=== PATIENT | male | born 2000 | race Caucasian/White ===

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

== ENCOUNTER 2018-03-28 14:38 | Inpatient (IN) | payer BC ==
[2018-03-28] MEDS ORDERED: SODIUM CHLORIDE 1,000 ML IV STA ×2 (14:40→17:12)
[2018-03-28] MEDS ORDERED: ONDANSETRON 4 MG/2 ML VIAL IVPUSH ONE (14:40)
[2018-03-28] MEDS ORDERED: ACETAMINOPHEN 1000 MG/100 ML VIAL (NON FORMULARY) IVPB ONE ×2 (14:40→20:32)
[2018-03-28] MEDS ORDERED: ACETAMINOPHEN INJECTION 100 ML IVPB ONE ×2 (14:48→20:30)
[2018-03-28] MEDS ORDERED: ONDANSETRON 4 MG/2 ML VIAL ONE (14:48)
[2018-03-28 14:53] LABS: HEMATOCRIT 45.7 % (35.4-49); HEMOGLOBIN 15.3 GM/dl (11.7-16.9); MCH 29.9 pg (25.7-33.7); MCHC 33.4 g/dl (32.0-35.9); MEAN CELL VOLUME 89.6 fl (80-96); MEAN PLT VOLUME 8.2 fl (7.5-11.1); PLATELET COUNT 337 K/MM3 (134-434); RDW 12.2 % (11.9-15.9); WHITE BLOOD COUNT 21.6 K/mm3 (4.0-10.8)
[2018-03-28 15:04] LABS: INR 1.49 (0.82-1.09); PROTHROMBIN TIME (PATIENT) 16.5 SEC (10.2-13.0)
--- NOTE | 2018-03-28 15:05 | PDOC ---
History of Present Illness - General Chief Complaint: Nausea/Vomiting Stated Complaint: abd pain, vomiting Time Seen by Provider: 03/28/18 14:39 - History of Present Illness Initial Comments: 03/28/18 15:01 17 yo M with h/o spontaneous PTX presenting to ED with 1 day of abdominal pain, N+V. Pt states that he started having periumbilical abdominal pain yesterday. Today, the pain began to migrate towards his RLQ. Pt has vomited several times. Denies any diarrhea. Denies F/C. Denies any pain in his scrotum but states the pain does radiate towards his groin. No prior abdominal surgeries. Denies sexual activity. Past History - Past Medical History Allergies/Adverse Reactions: Allergies Allergy/AdvReac Type Severity Reaction Status Date / Time No Known Allergies Allergy Verified 03/28/18 14:47 Home Medications: Ambulatory Orders NK [No Known Home Medication] 11/01/14 Asthma: Yes COPD: No - Immunization History Immunization Up to Date: Yes - Suicide/Smoking/Psychosocial Hx Smoking History: Never smoked Have you smoked in the past 12 months: No Hx Alcohol Use: No Drug/Substance Use Hx: No Substance Use Type: None Review of Systems - Review of Systems Comments:: 03/28/18 15:04 GENERAL/CONSTITUTIONAL: No fever or chills. No weakness. HEAD, EYES, EARS, NOSE AND THROAT: No change in vision. No ear pain or discharge. No sore throat. CARDIOVASCULAR: No chest pain, no shortness of breath, no loss of consciousness RESPIRATORY: No cough, wheezing, or hemoptysis. GASTROINTESTINAL: + RLQ pain, + nausea, + vomiting, no diarrhea or constipation. GENITOURINARY: No dysuria, frequency, or change in urination. MUSCULOSKELETAL: No joint or muscle swelling or pain. No neck or back pain. SKIN: No rash NEUROLOGIC: No vertigo, no change in strength/sensation. ENDOCRINE: No increased thirst. No abnormal weight change. HEMATOLOGIC/LYMPHATIC: No anemia, easy bleeding, or history of blood clots. ALLERGIC/IMMUNOLOGIC: No hives or skin allergy. *Physical Exam - Physical Exam Comments: 03/28/18 15:05 "GENERAL: Awake, alert, and fully oriented, in no acute distress. HEAD: No signs of trauma EYES: PERRLA, EOMI, sclera anicteric, conjunctiva clear ENT: Auricles normal inspection, hearing grossly normal, nares patent, oropharynx clear without exudates. Moist mucosa NECK: Nontender, no stepoffs, Normal ROM, supple, no lymphadenopathy, JVD, or masses LUNGS: Breath sounds equal, clear to auscultation bilaterally. No wheezes, and no crackles HEART: Regular rate and rhythm, normal S1 and S2, no murmurs, rubs or gallops ABDOMEN: + RLQ tenderness, + guarding : No scrotal masses, normal scrotal appearance and lay, no inguinal hernia, + tenderness posterior to R testicle EXTREMITIES: Normal range of motion, no edema. No clubbing or cyanosis. No cords, erythema, or tenderness NEUROLOGICAL: Cranial nerves II through XII intact. 5/5 strength and sensation in all extremities, Normal speech, normal gait, normal cerebellar function SKIN: Warm, Dry, normal turgor, no rashes or lesions noted. ED Treatment Course - LABORATORY CBC & Chemistry Diagram: 03/28/18 14:48 03/28/18 14:48 - RADIOLOGY Radiology Studies Ordered: Category Date Time Status ABDOMEN & PELVIS CT WITH CONTR [CT] Stat CT Scan 03/28/18 14:53 Ordered SCROTUM AND CONTENTS US [US] Stat Ultrasound 03/28/18 14:58 Ordered - Medications Given in the ED: ED Medications Discontinued Medications Generic Name Dose Route Start Last Admin Trade Name Freq PRN Reason Stop Dose Admin Acetaminophen 1,000 mg 03/28/18 14:40 03/28/18 14:54 Ofirmev Injection - IVPB 03/28/18 14:41 1,000 mg ONCE ONE Administration Ondansetron HCl 4 mg 03/28/18 14:40 03/28/18 14:54 Zofran Injection IVPUSH 03/28/18 14:41 4 mg ONCE ONE Administration Medical Decision Making - Medical Decision Making 03/28/18 15:13 17 yo M with RLQ pain, N+V. Suspect acute appendicitis. Will also evaluate for testicular torsion given tenderness of R testicle on exam. - Labs - CTAP - Scrotal US - IVF, tylenol, zofran 03/28/18 16:11 Labs notable for WBC 21 On my read, CT with large appendicolith and + appendicitis Zosyn ordered Dr. Woo consulted, would like pt sent down to [facility] for OR Pt admitted to hospitalist. 03/28/18 17:33 Scrotal US with cysts, no evidence of torsion Pt informed of results and given copy of report *DC/Admit/Observation/Transfer Diagnosis at time of Disposition: Appendicitis - Discharge Dispostion Condition at time of disposition: Stable Decision to Admit order: Yes - Referrals Referrals: Dony Christie MD [Primary Care Provider] - - Patient Instructions - Post Discharge Activity - Attestations Physician Attestion: 03/28/18 16:12 I, Dr. Jerald Christiansen MD, attest that this document has been prepared under my direction and personally reviewed by me in its entirety. I further attest, that it accurately reflects all work, treatment, procedures and medical decision -making performed by me.
[2018-03-28 15:10] LABS: ALBUMIN 4.6 g/dl (3.4-5.0); ALK PHOS 100 U/L (45-117); ANION GAP 13 MMOL/L (8-16); BILIRUBIN,TOTAL 1.1 mg/dl (0.2-1); BLOOD UREA NITROGEN 17 mg/dl (7-18); CALCIUM 9.5 mg/dl (8.5-10); CHLORIDE 98 mmol/L (98-107); CO2 24 mmol/L (21-32); CREATININE 1.1 mg/dl (0.55-1.3); GLUCOSE,RANDOM 138 mg/dl (74-106); POTASSIUM 3.9 mmol/L (3.5-5.1); SGOT/AST 28 U/L (15-37); SGPT/ALT 28 U/L (13-61); SODIUM 135 mmol/L (136-145); TOT PROT 7.7 g/dl (6.4-8.2)
[2018-03-28] MEDS ORDERED: MORPHINE SULFATE 2 MG/ML VIAL IVPUSH ONE (15:45)
[2018-03-28] MEDS ORDERED: PIPERACILLIN/TAZOB 4.5 GM 4.5 GM/100 ML BAG IVPB ONE (15:48)
[2018-03-28] MEDS ORDERED: PIPERACILLIN/TAZOBACTAM 3.375 GM VIAL IVPB ONE (15:48)
[2018-03-28] MEDS ORDERED: PIPERACILLIN/TAZOBACTAM 4.5 GM VIAL IVPB ONE (15:50)
[2018-03-28 15:53] LABS: PLATELET ESTIMATE ADEQUATE
[2018-03-28] MEDS ORDERED: morphine SULFATE 4 MG/ML VIAL ONE ×2 (16:15→17:23)
[2018-03-28 16:32] LABS: URINE APPEARANCE Clear; URINE BILIRUBIN Negative (NEGATIVE); URINE COLOR Yellow; URINE GLUCOSE (UA) Negative (NEGATIVE); URINE KETONE Negative (NEGATIVE); URINE LEUK ESTERASE Negative (NEGATIVE); URINE NITRITE Negative (NEGATIVE); URINE PROTEIN Negative (NEGATIVE); URINE UROBILINOGEN 0.2 (0.2-1.0)
[2018-03-28] MEDS ORDERED: MORPHINE SULFATE 2 MG/ML VIAL IVPUSH PRN ×2 (16:47→22:30)
[2018-03-28 16:54] LABS: LIPASE 95 U/L (73-393)
[2018-03-28] MEDS ORDERED: SODIUM CHLORIDE 1,000 ML IV SCH (17:00)
[2018-03-28] MEDS ORDERED: morphine CARPU-JECT 4 MG/1 ML DISP.SYRIN IVPUSH ONE (17:23)
[2018-03-28] MEDS ORDERED: BUPIVACAINE HCL/PF 0.5% (5MG/ML) 10 ML VIAL ONE (18:54)
--- NOTE | 2018-03-28 19:04 | HP ---
CHIEF COMPLAINT: abdominal pain PCP: HISTORY OF PRESENT ILLNESS: Patient is a 17 year male with a signficnat past medical history of left-sided spontaneous pneumothorax in 2016 and was transferred and treated at [facility] ([facility]). He then developed a second spontaneous pneumothomax 2017 on the left lung and again treated at [facility]. He presents to the ED today for 1 day c/o of abdominal pain with associated nausea vomiting. Patient began to have periumbilical abdominal pain yesterday. Today, the pain began to migrate towards his RLQ. He attempted to eat crackers but was unable to eat anything else. He vomitied several times today. Denies any diarrhea. On exam, patient verbalizes tenderness and has mild distention of his abdomen. ER course was notable for: (1) lactic acid 3.6 (2) zosyn iv (3) wbc 21 Recent Travel: none PAST MEDICAL HISTORY: spontaneous pneumothorax x 2 2015 and 2017 PAST SURGICAL HISTORY: Social History: Smoking: none Alcohol:none Drugs: none Family History: Allergies No Known Allergies Allergy (Verified 03/28/18 14:47) HOME MEDICATIONS: Home Medications Medication Instructions Recorded NK [No Known Home Medication] 11/01/14 REVIEW OF SYSTEMS CONSTITUTIONAL: Absent: fever, chills, diaphoresis, generalized weakness, malaise, loss of appetite, weight change HEENT: Absent: rhinorrhea, nasal congestion, throat pain, throat swelling, difficulty swallowing, mouth swelling, ear pain, eye pain, visual changes CARDIOVASCULAR: Absent: chest pain, syncope, palpitations, irregular heart rate, lightheadedness , peripheral edema RESPIRATORY: Absent: cough, shortness of breath, dyspnea with exertion, orthopnea, wheezing, stridor, hemoptysis GENITOURINARY: Absent: dysuria, frequency, urgency, hesitancy, hematuria, flank pain, genital pain MUSCULOSKELETAL: Absent: myalgia, arthralgia, joint swelling, back pain, neck pain SKIN: Absent: rash, itching, pallor HEMATOLOGIC/IMMUNOLOGIC: Absent: easy bleeding, easy bruising, lymphadenopathy, frequent infections ENDOCRINE: Absent: unexplained weight gain, unexplained weight loss, heat intolerance, cold intolerance NEUROLOGIC: Absent: headache, focal weakness or paresthesias, dizziness, unsteady gait, seizure, mental status changes, bladder or bowel incontinence PSYCHIATRIC: Absent: anxiety, depression, suicidal or homicidal ideation, hallucinations. PHYSICAL EXAMINATION Vital Signs - 24 hr 03/28/18 03/28/18 14:39 17:41 Temperature 98.9 F 98.8 F Pulse Rate 82 101 H Respiratory 18 17 Rate Blood Pressure 136/88 113/64 O2 Sat by Pulse 98 Oximetry (%) GENERAL: Awake, alert, and fully oriented, in no acute distress. flat affect. HEAD: Normal with no signs of trauma. EYES: Pupils equal, round and reactive to light, extraocular movements intact, sclera anicteric, conjunctiva clear. No lid lag. EARS, NOSE, THROAT: Ears normal, nares patent, oropharynx clear without exudates. Moist mucous membranes. NECK: Normal range of motion, supple without lymphadenopathy, JVD, or masses. LUNGS: Breath sounds equal, clear to auscultation bilaterally. HEART: Regular rate and rhythm ABDOMEN: soft tender, mildly distended abdomen with hypoactive bowel sounds MUSCULOSKELETAL: Normal range of motion at all joints. No bony deformities or tenderness. No CVA tenderness. UPPER EXTREMITIES: . No peripheral edema. LOWER EXTREMITIES: No peripheral edema. NEUROLOGICAL: Normal speech. Normal gait. PSYCHIATRIC: Cooperative. Good eye contact. flat affect SKIN: Warm, dry, normal turgor, no rashes or lesions noted, normal capillary refill. Laboratory Results - last 24 hr 03/28/18 03/28/18 03/28/18 14:48 14:48 14:48 WBC 21.6 H RBC 5.10 Hgb 15.3 Hct 45.7 MCV 89.6 MCH 29.9 MCHC 33.4 RDW 12.2 Plt Count 337 D MPV 8.2 Absolute Neuts (auto) 19.0 Neutrophils % No Result Required. Neutrophils % (Manual) 84.0 H Band Neutrophils % 2.0 Lymphocytes % No Result Required. Lymphocytes % (Manual) 8.0 Monocytes % (Manual) 5 Eosinophils % (Manual) 1.0 Platelet Estimate Adequate PT with INR 16.5 H INR 1.49 H Sodium 135 L Potassium 3.9 Chloride 98 Carbon Dioxide 24 Anion Gap 13 BUN 17 Creatinine 1.1 Creat Clearance w eGFR > 60 Random Glucose 138 H Lactic Acid Calcium 9.5 Total Bilirubin 1.1 H AST 28 ALT 28 Alkaline Phosphatase 100 Total Protein 7.7 Albumin 4.6 Lipase 95 Urine Color Urine Appearance Urine pH Ur Specific [place] Urine Protein Urine Glucose (UA) Urine Ketones Urine Blood Urine Nitrite Urine Bilirubin Urine Urobilinogen Ur Leukocyte Esterase Anti-A Titer Blood Type Antibody Screen 03/28/18 03/28/18 03/28/18 14:48 14:48 15:10 WBC RBC Hgb Hct MCV MCH MCHC RDW Plt Count MPV Absolute Neuts (auto) Neutrophils % Neutrophils % (Manual) Band Neutrophils % Lymphocytes % Lymphocytes % (Manual) Monocytes % (Manual) Eosinophils % (Manual) Platelet Estimate PT with INR INR Sodium Potassium Chloride Carbon Dioxide Anion Gap BUN Creatinine Creat Clearance w eGFR Random Glucose Lactic Acid 3.6 H* Calcium Total Bilirubin AST ALT Alkaline Phosphatase Total Protein Albumin Lipase Urine Color Urine Appearance Urine pH Ur Specific [place] Urine Protein Urine Glucose (UA) Urine Ketones Urine Blood Urine Nitrite Urine Bilirubin Urine Urobilinogen Ur Leukocyte Esterase Anti-A Titer Cancelled Blood Type A POSITIVE Cancelled Antibody Screen Negative Cancelled 03/28/18 03/28/18 15:10 16:21 WBC RBC Hgb Hct MCV MCH MCHC RDW Plt Count MPV Absolute Neuts (auto) Neutrophils % Neutrophils % (Manual) Band Neutrophils % Lymphocytes % Lymphocytes % (Manual) Monocytes % (Manual) Eosinophils % (Manual) Platelet Estimate PT with INR INR Sodium Potassium Chloride Carbon Dioxide Anion Gap BUN Creatinine Creat Clearance w eGFR Random Glucose Lactic Acid Calcium Total Bilirubin AST ALT Alkaline Phosphatase Total Protein Albumin Lipase Urine Color Yellow Urine Appearance Clear Urine pH 7.0 Ur Specific [place] 1.010 Urine Protein Negative Urine Glucose (UA) Negative Urine Ketones Negative Urine Blood Negative Urine Nitrite Negative Urine Bilirubin Negative Urine Urobilinogen 0.2 Ur Leukocyte Esterase Negative Anti-A Titer Blood Type A POSITIVE Antibody Screen ASSESSMENT/PLAN: Patient is a 17 year male with a signficnat past medical history of left-sided spontaneous pneumothorax in 2015 and was transferred and treated at [facility] ([facility]). He then developed a second spontaneous pneumothomax on the left lung 2016 and again treated at [facility]. He presents to the ED today for 1 day c/o of abdominal pain with associated nausea vomiting. Patient began to have periumbilical abdominal pain yesterday. Today, the pain began to migrate towards his RLQ. He attempted to eat crackers but was unable to eat anything else. He vomitied several times today. Denies any diarrhea. On exam, patient verbalizes tenderness and has mild distention of his abdomen. GI/ID Severe Sepsis 2/2 of acute appendicitis. Abdominal pain Lactic acidosis with leukocytosis per ct scan: acute appendicitis is identified. no abscess. periappendiceal edema and fluid accumulation is noted. also small amt of free fluid within the rectov esical space Start on zoysn coverage pain management with morphine LR @ 150 cc/hr Surgery to evaluate ID consulted Pulmonary: Spontaneoius pneumothorax 2015 and 2017 Unclear etiology monitor patient closely post op. fen LR @ 150 monitor electrolytes npo prophy: SCDS full code Visit type - Emergency Visit Emergency Visit: Yes Care time: The patient presented to the Emergency Department on the above date and was hospitalized for further evaluation of their emergent condition. - New Patient This patient is new to me today: Yes Date on this admission: 03/28/18 - Critical Care Critical Care patient: No
--- NOTE | 2018-03-28 19:07 | CON.ID ---
Consult Consult Specialty:: infectious diseases Referred by:: armin Reason for Consultation:: appendicitis - History of Present Illness Chief Complaint: rt sided abd pain History of Present Illness: 17 year male with a signficnat past medical history of spontaneous pneumothorax coming to the hospital because of rt sided abd pain which came on suddenly since one day mentions that he had nausea and vomiting. on coming to the hospital patient was worked up and found to have appendicitis surgery team was called and the plan is to take the patient to the operating room currently patient continues to have pain - History Source History Provided By: Patient, Family Member Limitations to Obtaining History: No Limitations - Alcohol/Substance Use Hx Alcohol Use: No - Smoking History Smoking history: Never smoked Have you smoked in the past 12 months: No Home Medications - Allergies Allergies/Adverse Reactions: Allergies Allergy/AdvReac Type Severity Reaction Status Date / Time No Known Allergies Allergy Verified 03/28/18 14:47 - Home Medications Home Medications: Ambulatory Orders NK [No Known Home Medication] 11/01/14 Family Disease History - Family Disease History Family Disease History: Other: Mother (mom had ptx) Review of Systems - Review of Systems Constitutional: reports: No Symptoms Eyes: reports: No Symptoms HENT: reports: No Symptoms Neck: reports: No Symptoms Cardiovascular: reports: No Symptoms Respiratory: reports: No Symptoms Gastrointestinal: reports: Abdominal Pain, Bloating, Nausea, Vomiting Genitourinary: reports: No Symptoms Musculoskeletal: reports: No Symptoms Integumentary: reports: No Symptoms Neurological: reports: No Symptoms Endocrine: reports: No Symptoms Hematology/Lymphatic: reports: No Symptoms Psychiatric: reports: No Symptoms Physical Exam Vital Signs: Vital Signs Temperature 98.8 F 03/28/18 17:41 Pulse Rate 101 H 03/28/18 17:41 Respiratory Rate 17 03/28/18 17:41 Blood Pressure 113/64 03/28/18 17:41 O2 Sat by Pulse Oximetry (%) 98 03/28/18 14:39 Constitutional: Yes: Well Nourished, Calm, Mild Distress Eyes: Yes: Conjunctiva Clear HENT: Yes: Atraumatic, Normocephalic Neck: Yes: Supple, Trachea Midline Cardiovascular: Yes: Regular Rate and Rhythm Respiratory: Yes: Regular, CTA Bilaterally Gastrointestinal: Yes: Tenderness (rt lower quadrant), Other (hypoactive bowel sounds) Musculoskeletal: Yes: WNL Extremities: Yes: WNL Neurological: Yes: Alert, Oriented Psychiatric: Yes: Alert, Oriented Labs: CBC, BMP 03/28/18 14:48 03/28/18 14:48 Imaging - Results Cat Scan: Report Reviewed, Image Reviewed Ultrasound: Report Reviewed, Image Reviewed Assessment/Plan patient coming with acute appendicitis ac appendicitis leukocytosis h/o of spontaneous ptx abd pain plan will start patient on abx for surgery monitor wbc await post op rest as per the team
[2018-03-28] MEDS ORDERED: LACTATED RINGERS SOLUTION 1,000 ML/1,000 ML INFUS.BAG IV SCH (19:15)
[2018-03-28] MEDS ORDERED: MIDAZOLAM HCL 2 MG/2 ML SINGLE DOSE VIAL ONE (20:11)
--- NOTE | 2018-03-28 20:17 | CONSULT ---
- Consultation REQUESTING PROVIDER: Jerald Christiansen MD CONSULT REQUEST: We have been asked to surgically evaluate this patient for appendicitis PCP:Albaro Luciano NP HISTORY OF PRESENT ILLNESS: PMHx: spontaneous pneumothorax; left PSHx: VATS for spontaneous pnemothorax Home Medications Medication Instructions Recorded NK [No Known Home Medication] 11/01/14 Allergies Allergy/AdvReac Type Severity Reaction Status Date / Time No Known Allergies Allergy Verified 03/28/18 14:47 REVIEW OF SYSTEMS: CONSTITUTIONAL: Absent: fever, chills, diaphoresis, generalized weakness, malaise, loss of appetite, weight change CARDIOVASCULAR: Absent: chest pain, syncope, palpitations, irregular heart rate, lightheadedness , peripheral edema RESPIRATORY: Present: cough, shortness of breath, dyspnea with exertion, GASTROINTESTINAL: Absent: abdominal pain, abdominal distension, nausea, vomiting, diarrhea, constipation, melena, hematochezia GENITOURINARY: Absent: dysuria, frequency, urgency, hesitancy, hematuria, flank pain, genital pain MUSCULOSKELETAL: Absent: myalgia, arthralgia, joint swelling, back pain, neck pain SKIN: Absent: rash, itching, pallor HEMATOLOGIC/IMMUNOLOGIC: Absent: easy bleeding, easy bruising, lymphadenopathy NEUROLOGIC: Absent: headache, focal weakness, paresthesias, dizziness, unsteady gait, seizure, mental status changes, bladder or bowel incontinence PSYCHIATRIC: Absent: anxiety, depression, suicidal or homicidal ideation, hallucinations. PHYSICAL EXAM: GENERAL: Awake, alert, and fully oriented, in no acute distress. HEAD: Normal with no signs of trauma. EYES: PERRL, sclera anicteric, conjunctiva clear. NECK: Normal ROM, supple without lymphadenopathy, JVD, or masses. LUNGS: Clear to auscultation bilat anteriorly. No wheezes, and no crackles. No accessory muscle use. HEART: Regular rate and rhythm. No murmurs ABDOMEN: Soft, nontender, not distended, normoactive bowel sounds, no guarding, no rebound, no masses. No organomegaly. MUSCULOSKELETAL: Normal ROM at all joints. No bony deformities or tenderness. No CVA tenderness. UPPER EXTREMITIES: 2+ pulses, warm, well-perfused. No cyanosis. Cap refill <2 seconds. No peripheral edema. LOWER EXTREMITIES: 2+ pulses, warm, well-perfused. No calf tenderness. No peripheral edema. NEUROLOGICAL: Normal speech, gait not observed. PSYCH: Cooperative. Good eye contact. Appropriate mood and affect. SKIN: Warm, dry, normal turgor, no rashes or lesions noted. Vital Signs Temperature 98.8 F 03/28/18 17:41 Pulse Rate 101 H 03/28/18 17:41 Respiratory Rate 17 03/28/18 17:41 Blood Pressure 113/64 03/28/18 17:41 O2 Sat by Pulse Oximetry (%) 98 03/28/18 14:39 Lab Results WBC 21.6 K/mm3 (4.0-10.8) H 03/28/18 14:48 RBC 5.10 M/mm3 (4.00-5.60) 03/28/18 14:48 Hgb 15.3 GM/dl (11.7-16.9) 03/28/18 14:48 Hct 45.7 % (35.4-49) 03/28/18 14:48 MCV 89.6 fl (80-96) 03/28/18 14:48 MCHC 33.4 g/dl (32.0-35.9) 03/28/18 14:48 RDW 12.2 % (11.9-15.9) 03/28/18 14:48 Plt Count 337 K/MM3 (134-434) D 03/28/18 14:48 Sodium 135 mmol/L (136-145) L 03/28/18 14:48 Potassium 3.9 mmol/L (3.5-5.1) 03/28/18 14:48 Chloride 98 mmol/L (98-107) 03/28/18 14:48 Carbon Dioxide 24 mmol/L (21-32) 03/28/18 14:48 Anion Gap 13 MMOL/L (8-16) 03/28/18 14:48 BUN 17 mg/dl (7-18) 03/28/18 14:48 Creatinine 1.1 mg/dl (0.55-1.3) 03/28/18 14:48 Random Glucose 138 mg/dl (74-106) H 03/28/18 14:48 Calcium 9.5 mg/dl (8.5-10) 03/28/18 14:48 Blood Type A POSITIVE 03/28/18 15:10 Antibody Screen Cancelled 03/28/18 15:10 INR 1.49 (0.82-1.09) H 03/28/18 14:48 CT scan a/p reviewed; images and report IMP;acute appendicitis PLAN: Laparoscopic possible open appendectomy; r/b/t/a's d/w the patient and his father and informed consent obtained. Jerald Woo MD FACS
[2018-03-28] MEDS ORDERED: DEXAMETHASONE SOD PHOSPHATE 4 MG/1 ML VIAL ONE ×2 (20:22→21:36)
[2018-03-28] MEDS ORDERED: PROPOFOL 20 ML ONE (20:22)
[2018-03-28] MEDS ORDERED: LIDOCAINE HCL/PF 2% SDV 5ML VIAL ONE (20:22)
[2018-03-28] MEDS ORDERED: ROCURONIUM BROMIDE 50 MG/5 ML VIAL ONE (20:23)
[2018-03-28] MEDS ORDERED: BUPIVACAINE HCL/PF (5 MG/ML) 30 ML VIAL IJ ONE ×3 (20:52→21:38)
[2018-03-28] MEDS ORDERED: NEOSTIGMINE METHYLSULFATE 0.5 MG/ML - 10 ML MDV ONE (21:38)
[2018-03-28] MEDS ORDERED: GLYCOPYRROLATE 0.2 MG/1 ML VIAL ONE (21:38)
--- NOTE | 2018-03-28 22:06 | OP ---
Operative Note - Note: Operative Date: 03/28/18 Pre-Operative Diagnosis: acute appendicitis Operation: lap appendectomy Post-Operative Diagnosis: Other (perforated gangrenous appendicitis) Surgeon: Jerald Woo Anesthesiologist/ROCK LATHER: Crescencio Rosales Anesthesia: General Specimens Removed: appendix Estimated Blood Loss (mls): 5 Drains & Tubes with Location: 10 mm [place] in pelvis
[2018-03-28] MEDS: LACTATED RINGERS SOLUTION 1,000 ML/1,000 ML INFUS.BAG IV SCH (22:30)
[2018-03-29] MEDS ORDERED: PIPERACILLIN/TAZOB 3.375 GM 3.375 GM in DEXTROSE 5%-WATER - 50 ML IVPB SCH (02:00)
[2018-03-29] MEDS ORDERED: PIPERACILLIN/TAZOBACTAM 3.375 GM VIAL IVPB ONE ×3 (02:36→17:26)
[2018-03-29] MEDS ORDERED: DEXTROSE 5%-WATER - 50 ML IVPB ONE ×3 (02:36→17:26)
[2018-03-29] MEDS: PIPERACILLIN/TAZOB 3.375 GM 3.375 GM in DEXTROSE 5%-WATER - 50 ML IVPB SCH ×3 (03:03→17:36)
[2018-03-29 07:06] LABS: BASO % 0.1 % (0-2.0); HEMATOCRIT 36.6 % (35.4-49); HEMOGLOBIN 12.6 GM/dL (11.7-16.9); LYMPH % 3.9 % (8-40); MCH 30.5 pg (25.7-33.7); MCHC 34.4 g/dl (32.0-35.9); MEAN CELL VOLUME 88.5 fl (80-96); MEAN PLT VOLUME 8.2 fl (7.5-11.1); MONO % 6.5 % (3.8-10.2); NEUT % 89.5 % (42.8-82.8); PLATELET COUNT 173 K/MM3 (134-434); RBC 4.14 M/mm3 (4.00-5.60); RDW 13.2 % (11.9-15.9); WHITE BLOOD COUNT 11.6 K/mm3 (4.0-10.0)
[2018-03-29] MEDS: morphine SULFATE 4 MG/ML VIAL IVPUSH PRN ×2 (07:32→20:03)
[2018-03-29 08:09] LABS: ALBUMIN 3.1 g/dl (3.4-5.0); ALK PHOS 87 U/L (45-117); ANION GAP 9 MMOL/L (8-16); BILIRUBIN,TOTAL 1.4 mg/dL (0.2-1); BLOOD UREA NITROGEN 16 mg/dL (7-18); CALCIUM 8.3 mg/dL (8.5-10.1); CHLORIDE 104 mmol/L (98-107); CO2 25 mmol/L (21-32); CREATININE 1.1 mg/dL (0.55-1.3); GLUCOSE,RANDOM 128 mg/dL (74-106); MAGNESIUM 1.9 mg/dL (1.8-2.4); POTASSIUM 4.1 mmol/L (3.5-5.1); SGOT/AST 73 U/L (15-37); SGPT/ALT 145 U/L (13-61); SODIUM 137 mmol/L (136-145); TOT PROT 5.9 g/dl (6.4-8.2)
--- NOTE | 2018-03-29 08:56 | PN ---
Progress Note (short form) - Note Progress Note: Atending Surgeon POD #1 s/p lap appendectomy for perforated gangrenous appendicitis Minimal c/o pain; has voidedW; tolerated some PO this AM VSS AF abdo-soft; tender at port sites; all dressings c/d/i; EVENS seropurulent WBC 11.1 intraop cultures pending IMP: doing well PLAN:OOB/IVABS/clear liquid diet/EVENS drain/EC and DB. Jerald Woo MD FACS
[2018-03-29] MEDS: LACTATED RINGERS SOLUTION 1,000 ML/1,000 ML INFUS.BAG IV SCH ×2 (10:14→17:49)
--- NOTE | 2018-03-29 10:46 | OP ---
DATE OF OPERATION: 03/28/2018 PREOPERATIVE DIAGNOSIS: Acute appendicitis. POSTOPERATIVE DIAGNOSIS: Perforated gangrenous appendicitis. PROCEDURE: Laparoscopic appendectomy. SURGEON: Jerald Woo MD ANESTHESIA: General. OPERATIVE FINDINGS: There was a perforated gangrenous appendicitis. There was no evidence of intraabdominal abscess. There was mild phlegmon. There was purulent fluid in the pelvis and right gutter. The rest of the findings were unremarkable. DESCRIPTION OF PROCEDURE: The patient was placed on the operating table in the supine position, and after the induction of general anesthesia, the patients abdomen was prepped with ChloraPrep and draped in sterile fashion. A time-out was taken , and then, pneumoperitoneum established above the umbilicus using a Veress needle to an intraabdominal pressure of 15 mmHg. Next, a 12-mm suprapubic port was placed, and a left lower quadrant 5-mm port placed, and laparoscopy carried out, and the previously noted findings were observed. The appendix was identified and grasped and traced to the base of the cecum, and the terminal ileum was identified, as well. The phlegmon of omentum over the appendix was bluntly dissected and mobilized away from the appendix. The mesoappendix was then identified and serially divided using the LigaSure device. Once down to the base of the appendix, an Endo AMY stapling device was placed across the base and fired, and the appendix placed in an EndoCatch and brought up to the abdominal wall. There was no evidence of bleeding from the staple line. Next, an aspirate from the peritoneal cavity was sent or culture and sensitivity to Microbiology. After this, copious irrigation was carried out with 3 L of normal saline until the return was clear. The majority of the irrigation fluid was suctioned out. Next the appendix was removed from the suprapubic port site, and the port replaced, and a 10-mm Lonnie-Schneider drain was placed in the right pelvis and brought out through the left lower quadrant 5-mm port site and secured to the skin with 2-0 silk suture. Hemostasis was checked for again and noted to be good, and then, all ports were removed under laparoscopic vision without evidence of bleeding from the port sites, and pneumoperitoneum evacuated. The defect at the suprapubic port site was closed with a single 0 Vicryl figure-of-8 suture. The port sites were infiltrated with 0.5% Marcaine and closed with 4-0 Monocryl in a subcuticular continuous fashion. A Biopatch was placed around the drain site, and then, Steri-Strips and dry sterile dressing were placed over all port sites, and the procedure terminated at this point, and the patient was roused from general anesthesia and transferred to the post-anesthesia care unit in stable condition, awake and alert. ESTIMATED BLOOD LOSS: 10 mL. REPLACEMENTS: Crystalloid. DRAINS: One 10-mm Lonnie-Schneider. SPECIMENS: Appendix to Pathology and culture of intraperitoneal fluid sent to Microbiology. I, Jerald Woo, was physically present in the operating room from the time the patient was placed on the operating table until he was transferred to the post-anesthesia care unit in my accompaniment. MD RADHA Camejo/[id number] MTDD
--- NOTE | 2018-03-29 11:07 | PN ---
Progress Note (short form) - Note Progress Note: Pt s/p lap AP for perforated AP. Doing well, ambulating, tolerating some PO. No anesthetic issues/complications
--- NOTE | 2018-03-29 12:22 | PN ---
Physical Exam: SUBJECTIVE: Patient seen and examined OBJECTIVE: incentive spirometer. ambulation monitor respiratory status pain management POD #1 Vital Signs Period Temp Pulse Resp BP Sys/Guzman Pulse Ox Last 24 Hr 98.2 F-101.0 F 68-101 16-20 94-136/52-88 96-98 GENERAL: Awake, alert, and fully oriented, in no acute distress. HEAD: Normal with no signs of trauma. EYES: Pupils equal, round and reactive to light, extraocular movements intact, sclera anicteric, conjunctiva clear. No lid lag. EARS, NOSE, THROAT: Ears normal, nares patent, oropharynx clear without exudates. Moist mucous membranes. NECK: Normal range of motion, supple without lymphadenopathy, JVD, or masses. LUNGS: Breath sounds equal, clear to auscultation bilaterally. HEART: Regular rate and rhythm ABDOMEN: s/p lap appendectomy. dressing cdi MUSCULOSKELETAL: Normal range of motion at all joints. No bony deformities or tenderness. No CVA tenderness. UPPER EXTREMITIES: . No peripheral edema. LOWER EXTREMITIES: No peripheral edema. NEUROLOGICAL: Normal speech. Normal gait. PSYCHIATRIC: Cooperative. Good eye contact. flat affect SKIN: Warm, dry, normal turgor, no rashes or lesions noted, normal capillary refill. Laboratory Results - last 24 hr 03/28/18 03/28/18 03/28/18 14:48 14:48 14:48 WBC 21.6 H RBC 5.10 Hgb 15.3 Hct 45.7 MCV 89.6 MCH 29.9 MCHC 33.4 RDW 12.2 Plt Count 337 D MPV 8.2 Absolute Neuts (auto) 19.0 Neutrophils % No Result Required. Neutrophils % (Manual) 84.0 H Band Neutrophils % 2.0 Lymphocytes % No Result Required. Lymphocytes % (Manual) 8.0 Monocytes % Monocytes % (Manual) 5 Eosinophils % Eosinophils % (Manual) 1.0 Basophils % Nucleated RBC % Platelet Estimate Adequate PT with INR 16.5 H INR 1.49 H Sodium 135 L Potassium 3.9 Chloride 98 Carbon Dioxide 24 Anion Gap 13 BUN 17 Creatinine 1.1 Creat Clearance w eGFR > 60 Random Glucose 138 H Lactic Acid Calcium 9.5 Magnesium Total Bilirubin 1.1 H AST 28 ALT 28 Alkaline Phosphatase 100 Total Protein 7.7 Albumin 4.6 Lipase 95 Urine Color Urine Appearance Urine pH Ur Specific [place] Urine Protein Urine Glucose (UA) Urine Ketones Urine Blood Urine Nitrite Urine Bilirubin Urine Urobilinogen Ur Leukocyte Esterase Anti-A Titer Blood Type Antibody Screen 03/28/18 03/28/18 03/28/18 14:48 14:48 15:10 WBC RBC Hgb Hct MCV MCH MCHC RDW Plt Count MPV Absolute Neuts (auto) Neutrophils % Neutrophils % (Manual) Band Neutrophils % Lymphocytes % Lymphocytes % (Manual) Monocytes % Monocytes % (Manual) Eosinophils % Eosinophils % (Manual) Basophils % Nucleated RBC % Platelet Estimate PT with INR INR Sodium Potassium Chloride Carbon Dioxide Anion Gap BUN Creatinine Creat Clearance w eGFR Random Glucose Lactic Acid 3.6 H* Calcium Magnesium Total Bilirubin AST ALT Alkaline Phosphatase Total Protein Albumin Lipase Urine Color Urine Appearance Urine pH Ur Specific [place] Urine Protein Urine Glucose (UA) Urine Ketones Urine Blood Urine Nitrite Urine Bilirubin Urine Urobilinogen Ur Leukocyte Esterase Anti-A Titer Cancelled Blood Type A POSITIVE Cancelled Antibody Screen Negative Cancelled 03/28/18 03/28/18 03/29/18 15:10 16:21 06:00 WBC RBC Hgb Hct MCV MCH MCHC RDW Plt Count MPV Absolute Neuts (auto) Neutrophils % Neutrophils % (Manual) Band Neutrophils % Lymphocytes % Lymphocytes % (Manual) Monocytes % Monocytes % (Manual) Eosinophils % Eosinophils % (Manual) Basophils % Nucleated RBC % Platelet Estimate PT with INR INR Sodium 137 Potassium 4.1 Chloride 104 Carbon Dioxide 25 Anion Gap 9 BUN 16 Creatinine 1.1 Creat Clearance w eGFR > 60 Random Glucose 128 H Lactic Acid Calcium 8.3 L Magnesium 1.9 Total Bilirubin 1.4 H AST 73 H ALT 145 H Alkaline Phosphatase 87 Total Protein 5.9 L Albumin 3.1 L Lipase Urine Color Yellow Urine Appearance Clear Urine pH 7.0 Ur Specific [place] 1.010 Urine Protein Negative Urine Glucose (UA) Negative Urine Ketones Negative Urine Blood Negative Urine Nitrite Negative Urine Bilirubin Negative Urine Urobilinogen 0.2 Ur Leukocyte Esterase Negative Anti-A Titer Blood Type A POSITIVE Antibody Screen 03/29/18 06:00 WBC 11.6 H RBC 4.14 Hgb 12.6 Hct 36.6 D MCV 88.5 MCH 30.5 MCHC 34.4 RDW 13.2 Plt Count 173 D MPV 8.2 Absolute Neuts (auto) 10.3 H Neutrophils % 89.5 H D Neutrophils % (Manual) Band Neutrophils % Lymphocytes % 3.9 L D Lymphocytes % (Manual) Monocytes % 6.5 Monocytes % (Manual) Eosinophils % 0.0 D Eosinophils % (Manual) Basophils % 0.1 Nucleated RBC % 0 Platelet Estimate PT with INR INR Sodium Potassium Chloride Carbon Dioxide Anion Gap BUN Creatinine Creat Clearance w eGFR Random Glucose Lactic Acid Calcium Magnesium Total Bilirubin AST ALT Alkaline Phosphatase Total Protein Albumin Lipase Urine Color Urine Appearance Urine pH Ur Specific [place] Urine Protein Urine Glucose (UA) Urine Ketones Urine Blood Urine Nitrite Urine Bilirubin Urine Urobilinogen Ur Leukocyte Esterase Anti-A Titer Blood Type Antibody Screen Active Medications Generic Name Dose Route Start Last Admin Trade Name Freq PRN Reason Stop Dose Admin Lactated Ringer's 1,000 ml in 1,000 mls @ 150 mls/hr 03/28/18 22:30 03/29/18 10:14 Lactated Ringers Solution IV 150 mls/hr ASDIR JESU Administration Piperacillin Sod/Tazobactam 50 mls @ 100 mls/hr 03/29/18 02:00 03/29/18 10:13 Sod 3.375 gm/ Dextrose IVPB 100 mls/hr Q8H-IV JESU Administration Protocol Morphine Sulfate 4 mg 03/28/18 22:03 03/29/18 07:32 Morphine Sulfate IVPUSH 4 mg Q6H PRN Administration PAIN LEVEL 7-10 Morphine Sulfate 1 mg 03/28/18 22:30 Morphine Sulfate IVPUSH Q4H PRN PAIN LEVEL 4-6 ASSESSMENT/PLAN: Patient is a 17 year male with a signficnat past medical history of left-sided spontaneous pneumothorax in 2015 and was transferred and treated at [facility] He then developed a second spontaneous pneumothomax on the left lung 2016 and again treated at [facility]. He presents to the ED on 03/28/18 for 1 day c/o of abdominal pain with associated nausea vomiting. He was found to have acute appendicitis and is s/p POD #1 lap appendectomy for gangrenous appendix. ct scan: acute appendicitis is identified. no abscess. periappendiceal edema and fluid accumulation is noted. also small amt of free fluid within the rectov esical space GI/ID Severe Sepsis 2/2 of acute appendicitis. s/p lap appendectomy POD #1 Lactic acidosis with leukocytosis improving since admission 21 > 11.6 on zoysn coverage, day 2 pain management with morphine on clears incentive spirometer Surgery following ID following : bilateral testicular cysts No torsion Will need to see urology outpatient Pulmonary: Spontaneoius pneumothorax 2016 and 2017 Unclear etiology monitor patient closely post op. encourage incentive spirometer fen clears monitor electrolytes prophy: SCDS full code Visit type - Emergency Visit Emergency Visit: Yes Care time: The patient presented to the Emergency Department on the above date and was hospitalized for further evaluation of their emergent condition. - New Patient This patient is new to me today: No - Critical Care Critical Care patient: No - Discharge Referral Referred to [facility] Med P.C.: No
[2018-03-29] MEDS ORDERED: ACETAMINOPHEN 1000 MG/100 ML VIAL (NON FORMULARY) IVPB ONE (12:30)
[2018-03-29] MEDS ORDERED: ACETAMINOPHEN 1000 MG/100 ML VIAL (NON FORMULARY) IVPB PRN (16:48)
[2018-03-29] MEDS ORDERED: ONDANSETRON 4 MG/2 ML VIAL IVPUSH ONE (20:23)
[2018-03-29] MEDS ORDERED: ONDANSETRON 4 MG/2 ML VIAL ONE (20:27)
--- NOTE | 2018-03-29 21:59 | PN ---
Problem List - Problems (1) Appendicitis Code(s): K37 - UNSPECIFIED APPENDICITIS Qualifiers: Appendicitis type: acute appendicitis Acute appendicitis type: other Qualified Code(s): K35.890 - Other acute appendicitis without perforation or gangrene; K35.89 - Other acute appendicitis (2) Chest wall pain Assessment/Plan: denies chest pain Code(s): R07.89 - OTHER CHEST PAIN (3) Pneumothorax Assessment/Plan: history of spontaneous pneumothorax 2015/2016 s/p VATS at [facility] Code(s): J93.9 - PNEUMOTHORAX, UNSPECIFIED (4) Spontaneous pneumothorax Code(s): J93.83 - OTHER PNEUMOTHORAX (5) Sepsis Assessment/Plan: Sepsis in the setting of acute appendicitis Code(s): A41.9 - SEPSIS, UNSPECIFIED ORGANISM Qualifiers: Sepsis type: sepsis due to unspecified organism
[2018-03-29] MEDS ORDERED: RANITIDINE HCL 150 MG TABLET (FP) PO ONE (23:35)
[2018-03-29] MEDS ORDERED: MAG HYDROX/AL HYDROX/SIMETH 30 ML UNIT-DOSE CUP PO ONE (23:36)
[2018-03-30] MEDS ORDERED: PIPERACILLIN/TAZOBACTAM 3.375 GM VIAL IVPB ONE ×3 (01:55→17:09)
[2018-03-30] MEDS ORDERED: DEXTROSE 5%-WATER - 50 ML IVPB ONE ×2 (01:55→10:07)
[2018-03-30] MEDS: PIPERACILLIN/TAZOB 3.375 GM 3.375 GM in DEXTROSE 5%-WATER - 50 ML IVPB SCH ×3 (01:59→17:20)
[2018-03-30 08:18] LABS: BASO % 0.1 % (0-2.0); EOS % 0.1 % (0-4.5); HEMATOCRIT 35.9 % (35.4-49); HEMOGLOBIN 12.6 GM/dL (11.7-16.9); LYMPH % 6.6 % (8-40); MCH 31.1 pg (25.7-33.7); MCHC 35.1 g/dl (32.0-35.9); MEAN CELL VOLUME 88.6 fl (80-96); MEAN PLT VOLUME 8.3 fl (7.5-11.1); MONO % 7.2 % (3.8-10.2); PLATELET COUNT 189 K/MM3 (134-434); RBC 4.06 M/mm3 (4.00-5.60); RDW 13.2 % (11.9-15.9); WHITE BLOOD COUNT 10.6 K/mm3 (4.0-10.0)
[2018-03-30 08:52] LABS: ANION GAP 9 MMOL/L (8-16); BLOOD UREA NITROGEN 17 mg/dL (7-18); CALCIUM 7.9 mg/dL (8.5-10.1); CHLORIDE 103 mmol/L (98-107); CO2 26 mmol/L (21-32); GLUCOSE,RANDOM 93 mg/dL (74-106); POTASSIUM 3.8 mmol/L (3.5-5.1); SODIUM 138 mmol/L (136-145)
--- NOTE | 2018-03-30 10:36 | PN ---
Progress Note (short form) - Note Progress Note: Attending Surgeon POD#2 Had some nausea and vomiting VSS AF abdo-soft but slightly tender; port site dressings c/d/i; EVENS more serous than purulent WBC continues to tend down Cultures from OR pending IMP: stable post op w/probable localized peritonitis and ileus PLAN: Clear liquids as tolerated; cont IVF/IVABS/EVENS drain; ID f/u/OOB Jerald Woo MD FACS
[2018-03-30] MEDS ORDERED: LORazepam 0.5 MG TABLET PO ONE (11:38)
--- NOTE | 2018-03-30 11:41 | PN ---
Physical Exam: SUBJECTIVE: Patient seen and examined at the bedside. seen by surgery. patient tells he he vomited three times last night. am not feeling well due to nausea, vomiting, pain. OBJECTIVE: remy drain to gravity with straw colored output remy bulb intake and output noted will give one dose of ativan 0.5mg po x 1 now as it may help with all of his symptoms (nausea, pain). he is refusing morphine 2/2 to nausea encouraged ambulation using incentive spirometer POD #2 Vital Signs Period Temp Pulse Resp BP Sys/Guzman Pulse Ox Last 24 Hr 97.9 F-98.8 F 76-94 20-20 105-124/51-62 97 GENERAL: Awake, alert, and fully oriented, HEAD: Normal with no signs of trauma. EYES: Pupils equal, round and reactive to light, extraocular movements intact, sclera anicteric, conjunctiva clear. No lid lag. EARS, NOSE, THROAT: Ears normal, nares patent, oropharynx clear without exudates. Moist mucous membranes. NECK: Normal range of motion, supple without lymphadenopathy, JVD, or masses. LUNGS: Breath sounds equal, clear to auscultation bilaterally. HEART: Regular rate and rhythm ABDOMEN: s/p lap appendectomy. dressing cdi remy drain placed. nausea/abdomen tender MUSCULOSKELETAL: Normal range of motion at all joints. No bony deformities or tenderness. No CVA tenderness. UPPER EXTREMITIES: . No peripheral edema. LOWER EXTREMITIES: No peripheral edema. NEUROLOGICAL: Normal speech. Normal gait. PSYCHIATRIC: Cooperative. Good eye contact. Laboratory Results - last 24 hr 03/30/18 03/30/18 03/30/18 07:30 07:30 09:00 WBC 10.6 H RBC 4.06 Hgb 12.6 Hct 35.9 MCV 88.6 MCH 31.1 MCHC 35.1 RDW 13.2 Plt Count 189 MPV 8.3 Absolute Neuts (auto) 9.1 H Neutrophils % 86.0 H Lymphocytes % 6.6 L D Monocytes % 7.2 Eosinophils % 0.1 D Basophils % 0.1 Nucleated RBC % 0 Sodium 138 Potassium 3.8 Chloride 103 Carbon Dioxide 26 Anion Gap 9 BUN 17 Creatinine 1.0 Creat Clearance w eGFR > 60 Random Glucose 93 Lactic Acid 1.2 Calcium 7.9 L Active Medications Generic Name Dose Route Start Last Admin Trade Name Freq PRN Reason Stop Dose Admin Acetaminophen 1,000 mg 03/29/18 16:48 Ofirmev Injection - IVPB Q6H PRN PAIN LEVEL 7 - 10 Lactated Ringer's 1,000 ml in 1,000 mls @ 150 mls/hr 03/28/18 22:30 03/29/18 17:49 Lactated Ringers Solution IV 150 mls/hr ASDIR JESU Administration Piperacillin Sod/Tazobactam 50 mls @ 100 mls/hr 03/29/18 02:00 03/30/18 10:09 Sod 3.375 gm/ Dextrose IVPB 100 mls/hr Q8H-IV JESU Administration Protocol Lorazepam 0.5 mg 03/30/18 11:38 Ativan - PO 03/30/18 11:39 ONCE ONE Morphine Sulfate 4 mg 03/28/18 22:03 03/29/18 20:03 Morphine Sulfate IVPUSH 4 mg Q6H PRN Administration PAIN LEVEL 7-10 Morphine Sulfate 1 mg 03/28/18 22:30 Morphine Sulfate IVPUSH Q4H PRN PAIN LEVEL 4-6 ASSESSMENT/PLAN: Patient is a 17 year male with a significant past medical history of left- sided spontaneous pneumothorax in 2015 and was transferred and treated at [facility] He then developed a second spontaneous pneumothomax on the left lung 2016 and again treated at [facility]. He presents to the ED on 03/28/18 for 1 day c/o of abdominal pain with associated nausea vomiting. He was found to have acute appendicitis and is s/p POD #2 lap appendectomy for gangrenous appendix. ct scan: acute appendicitis is identified. no abscess. periappendiceal edema and fluid accumulation is noted. also small amt of free fluid within the rectov esical space GI/ID Severe Sepsis 2/2 of acute appendicitis. resolved s/p lap appendectomy POD #2 Lactic acidosis with leukocytosis improving since admission 21 > 10 on zoysn coverage, day 3 having pain, refusing morphine 2/2 to side effects. on clears, but had 3 episodes of n/v incentive spirometer reinforced Surgery following ID following : bilateral testicular cysts No torsion Will need to see urology outpatient Pulmonary: Spontaneoius pneumothorax 2015 and 2017 Unclear etiology monitor patient closely post op. encourage incentive spirometer fen clears monitor electrolytes prophy: SCDS full code Problem List - Problems (1) Appendicitis Code(s): K37 - UNSPECIFIED APPENDICITIS Qualifiers: Appendicitis type: acute appendicitis Acute appendicitis type: other Qualified Code(s): K35.890 - Other acute appendicitis without perforation or gangrene; K35.89 - Other acute appendicitis (2) Chest wall pain Code(s): R07.89 - OTHER CHEST PAIN (3) Pneumothorax Code(s): J93.9 - PNEUMOTHORAX, UNSPECIFIED (4) Spontaneous pneumothorax Code(s): J93.83 - OTHER PNEUMOTHORAX (5) Sepsis Code(s): A41.9 - SEPSIS, UNSPECIFIED ORGANISM Qualifiers: Sepsis type: sepsis due to unspecified organism Qualified Code(s): A41.9 - Sepsis, unspecified organism Visit type - Emergency Visit Emergency Visit: Yes ED Registration Date: 03/28/18 Care time: The patient presented to the Emergency Department on the above date and was hospitalized for further evaluation of their emergent condition. - New Patient This patient is new to me today: No - Critical Care Critical Care patient: No - Discharge Referral Referred to [facility] Med P.C.: No
--- NOTE | 2018-03-30 12:57 | PN ---
Progress Note, Physician History of Present Illness: patient with nausea and vomiting abd soft wbc trending down - Current Medication List Current Medications: Active Medications Acetaminophen (Ofirmev Injection -) 1,000 mg IVPB Q6H PRN PRN Reason: PAIN LEVEL 7 - 10 Last Admin: 03/30/18 11:55 Dose: 1,000 mg Lactated Ringer's (Lactated Ringers Solution) 1,000 ml in 1,000 mls @ 150 mls/ hr IV ASDIR JESU Last Admin: 03/29/18 17:49 Dose: 150 mls/hr Piperacillin Sod/Tazobactam (Sod 3.375 gm/ Dextrose) 50 mls @ 100 mls/hr IVPB Q8H-IV JESU; Protocol Last Admin: 03/30/18 10:09 Dose: 100 mls/hr Morphine Sulfate (Morphine Sulfate) 4 mg IVPUSH Q6H PRN PRN Reason: PAIN LEVEL 7-10 Last Admin: 03/29/18 20:03 Dose: 4 mg Morphine Sulfate (Morphine Sulfate) 1 mg IVPUSH Q4H PRN PRN Reason: PAIN LEVEL 4-6 Ranitidine HCl (Zantac -) 150 mg PO BID JESU - Objective Vital Signs: Vital Signs Temperature 98.8 F 03/30/18 06:00 Pulse Rate 94 H 03/30/18 06:00 Respiratory Rate 20 03/30/18 06:00 Blood Pressure 124/62 03/30/18 06:00 O2 Sat by Pulse Oximetry (%) 97 03/29/18 21:00 Constitutional: Yes: Well Nourished, Calm Cardiovascular: Yes: Regular Rate and Rhythm Respiratory: Yes: Regular, CTA Bilaterally Gastrointestinal: Yes: Soft, Hypoactive Bowel Sounds Musculoskeletal: Yes: WNL Extremities: Yes: WNL Neurological: Yes: Alert, Oriented Psychiatric: Yes: Alert, Oriented Labs: CBC, BMP 03/30/18 07:30 03/30/18 07:30 INR, PTT INR 1.49 (0.82-1.09) H 03/28/18 14:48 Assessment/Plan patient coming with acute appendicitis ac appendicitis leukocytosis h/o of spontaneous ptx abd pain plan continue abx monitor for nausea and vomiting monitor wbc rest as per the team
[2018-03-30] MEDS ORDERED: ONDANSETRON *ODT* 4 MG TABLET SL PRN (16:30)
[2018-03-30] MEDS ORDERED: PROCHLORPERAZINE MALEATE 5 MG TABLET PO PRN (18:41)
[2018-03-30] MEDS ORDERED: oxyCODONE HCL 5 MG TABLET PO PRN (18:43)
[2018-03-30] MEDS ORDERED: ACETAMINOPHEN WITH CODEINE 300MG/30MG TABLET PO PRN (18:48)
[2018-03-30] MEDS ORDERED: traMADol HCL 50 MG TABLET PO PRN (18:53)
[2018-03-30] MEDS: LORazepam 0.5 MG TABLET PO SCH ×2 (19:03→21:53)
[2018-03-30] MEDS ORDERED: ONDANSETRON 4 MG/2 ML VIAL IVPUSH PRN (19:41)
[2018-03-30] MEDS: RANITIDINE HCL 150 MG TABLET (FP) PO SCH (21:53)
[2018-03-30] MEDS: LACTATED RINGERS SOLUTION 1,000 ML/1,000 ML INFUS.BAG IV SCH (22:30)
--- NOTE | 2018-03-30 23:51 | HOSP ---
Physical Examination Vital Signs: Vital Signs Temperature 98.6 F 03/30/18 18:30 Pulse Rate 85 03/30/18 18:30 Respiratory Rate 18 03/30/18 18:30 Blood Pressure 128/64 03/30/18 18:30 O2 Sat by Pulse Oximetry (%) 97 03/30/18 22:00 Labs: CBC, BMP 03/30/18 07:30 03/30/18 07:30 Hospitalist Encounter Assessment: called by Nurse to see patient, father present, pt c/o nausea, vomiting, po changed to IV zofran prn, pt received one dose will change to standing q4hrs zofran.
[2018-03-31] MEDS: ONDANSETRON 4 MG/2 ML VIAL IVPUSH SCH ×3 (00:08→07:41)
[2018-03-31] MEDS ORDERED: DEXTROSE 5%-WATER - 50 ML IVPB ONE ×3 (01:05→18:04)
[2018-03-31] MEDS ORDERED: PIPERACILLIN/TAZOBACTAM 3.375 GM VIAL IVPB ONE ×3 (01:05→18:04)
[2018-03-31] MEDS ORDERED: diphenhydrAMINE HCL 25 MG CAPSULE (FP) PO ONE (01:12)
[2018-03-31] MEDS: PIPERACILLIN/TAZOB 3.375 GM 3.375 GM in DEXTROSE 5%-WATER - 50 ML IVPB SCH ×3 (02:25→18:06)
[2018-03-31] MEDS: LACTATED RINGERS SOLUTION 1,000 ML/1,000 ML INFUS.BAG IV SCH ×3 (05:47→22:30)
[2018-03-31] MEDS: LORazepam 0.5 MG TABLET PO SCH ×2 (05:48→06:33)
[2018-03-31 08:31] LABS: BASO % 0.2 % (0-2.0); EOS % 0.7 % (0-4.5); HEMATOCRIT 37.6 % (35.4-49); HEMOGLOBIN 13.4 GM/dL (11.7-16.9); LYMPH % 7.2 % (8-40); MCH 31.6 pg (25.7-33.7); MCHC 35.5 g/dl (32.0-35.9); MEAN PLT VOLUME 7.9 fl (7.5-11.1); MONO % 8.1 % (3.8-10.2); NEUT % 83.8 % (42.8-82.8); PLATELET COUNT 238 K/MM3 (134-434); RBC 4.23 M/mm3 (4.00-5.60); RDW 13.3 % (11.9-15.9); WHITE BLOOD COUNT 13.8 K/mm3 (4.0-10.0)
[2018-03-31 09:01] LABS: ALBUMIN 2.7 g/dl (3.4-5.0); ALK PHOS 63 U/L (45-117); ANION GAP 10 MMOL/L (8-16); BILIRUBIN,TOTAL 0.6 mg/dL (0.2-1); BLOOD UREA NITROGEN 20 mg/dL (7-18); CALCIUM 7.9 mg/dL (8.5-10.1); CHLORIDE 102 mmol/L (98-107); CO2 26 mmol/L (21-32); CREATININE 1.1 mg/dL (0.55-1.3); GLUCOSE,RANDOM 92 mg/dL (74-106); MAGNESIUM 2.2 mg/dL (1.8-2.4); POTASSIUM 3.7 mmol/L (3.5-5.1); SGOT/AST 30 U/L (15-37); SGPT/ALT 58 U/L (13-61); SODIUM 138 mmol/L (136-145); TOT PROT 5.6 g/dl (6.4-8.2)
[2018-03-31] MEDS: RANITIDINE HCL 150 MG TABLET (FP) PO SCH ×2 (09:06→09:08)
--- NOTE | 2018-03-31 11:58 | PN ---
Progress Note, Physician History of Present Illness: patient c/o of vominting,nausea abd pain no gases - Current Medication List Current Medications: Active Medications Acetaminophen (Ofirmev Injection -) 1,000 mg IVPB Q6H PRN PRN Reason: PAIN LEVEL 7 - 10 Last Admin: 03/30/18 11:55 Dose: 1,000 mg Lactated Ringer's (Lactated Ringers Solution) 1,000 ml in 1,000 mls @ 150 mls/ hr IV ASDIR [facility] Last Admin: 03/31/18 05:47 Dose: 150 mls/hr Piperacillin Sod/Tazobactam (Sod 3.375 gm/ Dextrose) 50 mls @ 100 mls/hr IVPB Q8H-IV JESU; Protocol Last Admin: 03/31/18 09:07 Dose: 100 mls/hr Lorazepam (Ativan -) 0.5 mg PO TID [facility] Last Admin: 03/31/18 06:33 Dose: 0.5 mg Prochlorperazine Maleate (Compazine -) 5 mg PO Q4H PRN PRN Reason: NAUSEA AND/OR VOMITING Ranitidine HCl (Zantac -) 150 mg PO BID [facility] Last Admin: 03/31/18 09:08 Dose: Not Given Tramadol HCl (Ultram -) 50 mg PO Q6H PRN PRN Reason: PAIN LEVEL 7 - 10 - Objective Vital Signs: Vital Signs Temperature 98.3 F 03/31/18 08:46 Pulse Rate 86 03/31/18 08:46 Respiratory Rate 18 03/31/18 08:46 Blood Pressure 140/71 03/31/18 08:46 O2 Sat by Pulse Oximetry (%) 97 03/30/18 22:00 Constitutional: Yes: Calm, Moderate Distress Eyes: Yes: Conjunctiva Clear Cardiovascular: Yes: Regular Rate and Rhythm Respiratory: Yes: Regular, CTA Bilaterally Gastrointestinal: Yes: Soft, Tenderness Musculoskeletal: Yes: WNL Extremities: Yes: WNL Integumentary: Yes: Other (some redness noted on the left side) Wound/Incision: Yes: Other (drainage tube in place) Neurological: Yes: Alert, Oriented Labs: CBC, BMP 03/31/18 08:00 03/31/18 08:00 INR, PTT INR 1.49 (0.82-1.09) H 03/28/18 14:48 Assessment/Plan patient coming with acute appendicitis ac appendicitis leukocytosis h/o of spontaneous ptx abd pain plan continue abx monitor for nausea and vomiting monitor wbc rest as per the team monitor the redness on the side
--- NOTE | 2018-03-31 12:16 | PN ---
Progress Note (short form) - Note Progress Note: Attending Surgeon POD #3 Had several episodes of vomiting VSS AF abdo-soft; port site dressings c/d/i; EVENS serous and decreasing WBC 13.8 IMP: ileus secondary to perforated gangrenous appendicitis w/localozed peritonitis PLAN: NPO; continue present tx. Jerald Woo MD FACS
[2018-03-31] MEDS ORDERED: FAMOTIDINE 20 MG/50 ML IVPB 20 MG/50 ML MG IVPB ONE (12:17)
[2018-03-31] MEDS ORDERED: PROCHLORPERAZINE INJECTION 10 MG/2 ML VIAL IVPB PRN (12:19)
--- NOTE | 2018-03-31 12:20 | PN ---
Physical Exam: SUBJECTIVE: Patient seen and examined at the bedside. mild erythema noted on left flank. warm to touch nausea with vomiting x 5 overnight hiccups and some abdominal pain OBJECTIVE: keep npo encouraged patient to take the morphine 1mg as needed, he can take companzine before to prevent nausea that he gets with morphine monitor drain output IV tylenol for mild pain, morphine for more severe pain. pepcid bid continue LR @ 100 benadryl for sleep prn lorazepam ativan 1mg for nausea of companzine not working Vital Signs Period Temp Pulse Resp BP Sys/Guzman Pulse Ox Last 24 Hr 98.3 F-98.7 F 77-86 18-21 122-140/60-71 97 GENERAL: Awake, alert, and fully oriented, HEAD: Normal with no signs of trauma. EYES: Pupils equal, round and reactive to light, extraocular movements intact, sclera anicteric, conjunctiva clear. No lid lag. EARS, NOSE, THROAT: Ears normal, nares patent, oropharynx clear without exudates. Moist mucous membranes. NECK: Normal range of motion, supple without lymphadenopathy, JVD, or masses. HEART: Regular rate and rhythm ABDOMEN: s/p lap appendectomy. dressing cdi remy drain placed. nausea/abdomen tender to left flank, mild erythema noted on left side. MUSCULOSKELETAL: Normal range of motion at all joints. No bony deformities or tenderness. No CVA tenderness. UPPER EXTREMITIES: . No peripheral edema. LOWER EXTREMITIES: No peripheral edema. NEUROLOGICAL: Normal speech. Normal gait. PSYCHIATRIC: Cooperative. Good eye contact. Laboratory Results - last 24 hr 03/31/18 03/31/18 08:00 08:00 WBC 13.8 H RBC 4.23 Hgb 13.4 Hct 37.6 MCV 89.0 MCH 31.6 MCHC 35.5 RDW 13.3 Plt Count 238 D MPV 7.9 Absolute Neuts (auto) 11.6 H Neutrophils % 83.8 H Lymphocytes % 7.2 L Monocytes % 8.1 Eosinophils % 0.7 D Basophils % 0.2 Nucleated RBC % 0 Sodium 138 Potassium 3.7 Chloride 102 Carbon Dioxide 26 Anion Gap 10 BUN 20 H Creatinine 1.1 Creat Clearance w eGFR > 60 Random Glucose 92 Calcium 7.9 L Magnesium 2.2 Total Bilirubin 0.6 AST 30 ALT 58 Alkaline Phosphatase 63 Total Protein 5.6 L Albumin 2.7 L Active Medications Generic Name Dose Route Start Last Admin Trade Name Freq PRN Reason Stop Dose Admin Acetaminophen 1,000 mg 03/29/18 16:48 03/30/18 11:55 Ofirmev Injection - IVPB 1,000 mg Q6H PRN Administration PAIN LEVEL 7 - 10 Diphenhydramine HCl 12.5 mg 03/31/18 12:17 Benadryl Injection - IVPUSH Q4H PRN FOR ITCHING Lactated Ringer's 1,000 ml in 1,000 mls @ 150 mls/hr 03/28/18 22:30 03/31/18 05:47 Lactated Ringers Solution IV 150 mls/hr ASDIR JESU Administration Piperacillin Sod/Tazobactam 50 mls @ 100 mls/hr 03/29/18 02:00 03/31/18 09:07 Sod 3.375 gm/ Dextrose IVPB 100 mls/hr Q8H-IV JESU Administration Protocol Famotidine/Sodium Chloride 20 mg in 50 mls @ 100 mls/hr 03/31/18 12:17 Pepcid 20 Mg Premixed Ivpb - IVPB 03/31/18 12:46 ONCE ONE Famotidine/Sodium Chloride 20 mg in 50 mls @ 100 mls/hr 03/31/18 22:00 Pepcid 20 Mg Premixed Ivpb - IVPB BID JESU Lorazepam 0.5 mg 03/31/18 12:10 Ativan Injection - IVPUSH Q6H PRN nausea/vomiting Prochlorperazine Edisylate 10 mg 03/31/18 12:19 Compazine Injection - IVPB Q4H PRN NAUSEA AND/OR VOMITING ASSESSMENT/PLAN: Patient is a 17 year male with a significant past medical history of left- sided spontaneous pneumothorax in 2015 and was transferred and treated at [facility] ([facility]). He then developed a second spontaneous pneumothomax on the left lung 2016 and again treated at [facility]. He presents to the ED on 03/28/18 for 1 day c/o of abdominal pain with associated nausea vomiting. He was found to have acute appendicitis and is s/p POD #3 lap appendectomy for gangrenous appendix. ct scan: acute appendicitis is identified. no abscess. periappendiceal edema and fluid accumulation is noted. also small amt of free fluid within the rectov esical space GI/ID Severe Sepsis 2/2 of acute appendicitis. s/p lap appendectomy POD #3 Lactic acidosis with leukocytosis improving since admission 21 > 13.8 (slight bump up today) on zoysn coverage, day 3 pain management with morphine 1mg, can give companzine prior to morphine Keep NPO incentive spirometer Surgery following ID following Nausea/Vomiting Keep NPO and continue ivf hydration companzine, ativan prn for nausea/vomiting Monitor output : bilateral testicular cysts No torsion Will need to see urology outpatient Pulmonary: Spontaneoius pneumothorax 2016 and 2017 Unclear etiology monitor patient closely post op. encourage incentive spirometer fen NPO monitor electrolytes prophy: SCDS, ambulatory patient. full code Problem List - Problems (1) Appendicitis Code(s): K37 - UNSPECIFIED APPENDICITIS Qualifiers: Appendicitis type: acute appendicitis Acute appendicitis type: other Qualified Code(s): K35.890 - Other acute appendicitis without perforation or gangrene; K35.89 - Other acute appendicitis (2) Chest wall pain Code(s): R07.89 - OTHER CHEST PAIN (3) Pneumothorax Code(s): J93.9 - PNEUMOTHORAX, UNSPECIFIED (4) Spontaneous pneumothorax Code(s): J93.83 - OTHER PNEUMOTHORAX (5) Sepsis Code(s): A41.9 - SEPSIS, UNSPECIFIED ORGANISM Qualifiers: Sepsis type: sepsis due to unspecified organism Qualified Code(s): A41.9 - Sepsis, unspecified organism Visit type - Emergency Visit Emergency Visit: Yes ED Registration Date: 03/28/18 Care time: The patient presented to the Emergency Department on the above date and was hospitalized for further evaluation of their emergent condition. - New Patient This patient is new to me today: No - Critical Care Critical Care patient: No - Discharge Referral Referred to [facility] Med P.C.: No
[2018-03-31] MEDS ORDERED: MORPHINE SULFATE 2 MG/ML VIAL IVPUSH PRN (12:40)
[2018-03-31] MEDS: LORazepam 2 MG/ML SDV VIAL IVPUSH PRN ×2 (12:53→22:06)
[2018-03-31] MEDS: ACETAMINOPHEN 1000 MG/100 ML VIAL (NON FORMULARY) IVPB PRN (13:38)
[2018-03-31] MEDS: FAMOTIDINE 20 MG/50 ML IVPB 20 MG/50 ML MG IVPB SCH (22:00)
[2018-04-01] MEDS ORDERED: DEXTROSE 5%-WATER - 50 ML IVPB ONE ×2 (00:36→09:12)
[2018-04-01] MEDS ORDERED: PIPERACILLIN/TAZOBACTAM 3.375 GM VIAL IVPB ONE ×3 (00:36→17:13)
[2018-04-01] MEDS: PIPERACILLIN/TAZOB 3.375 GM 3.375 GM in DEXTROSE 5%-WATER - 50 ML IVPB SCH ×3 (02:00→17:33)
[2018-04-01] MEDS: LACTATED RINGERS SOLUTION 1,000 ML/1,000 ML INFUS.BAG IV SCH ×2 (05:29→22:30)
[2018-04-01 08:56] LABS: BASO % 0.3 % (0-2.0); HEMOGLOBIN 11.8 GM/dL (11.7-16.9); LYMPH % 11.7 % (8-40); MCH 30.7 pg (25.7-33.7); MCHC 34.7 g/dl (32.0-35.9); MEAN CELL VOLUME 88.5 fl (80-96); MEAN PLT VOLUME 7.6 fl (7.5-11.1); MONO % 10.2 % (3.8-10.2); NEUT % 75.8 % (42.8-82.8); PLATELET COUNT 208 K/MM3 (134-434); RBC 3.84 M/mm3 (4.00-5.60); RDW 13.4 % (11.9-15.9); WHITE BLOOD COUNT 8.7 K/mm3 (4.0-10.0)
[2018-04-01 09:14] LABS: ANION GAP 9 MMOL/L (8-16); BLOOD UREA NITROGEN 15 mg/dL (7-18); CALCIUM 7.7 mg/dL (8.5-10.1); CHLORIDE 106 mmol/L (98-107); CO2 23 mmol/L (21-32); CREATININE 0.9 mg/dL (0.55-1.3); GLUCOSE,RANDOM 81 mg/dL (74-106); MAGNESIUM 2.1 mg/dL (1.8-2.4); POTASSIUM 3.9 mmol/L (3.5-5.1); SODIUM 138 mmol/L (136-145)
[2018-04-01] MEDS: ACETAMINOPHEN 1000 MG/100 ML VIAL (NON FORMULARY) IVPB PRN ×2 (09:14→21:33)
[2018-04-01] MEDS: FAMOTIDINE 20 MG/50 ML IVPB 20 MG/50 ML MG IVPB SCH ×2 (09:15→21:26)
--- NOTE | 2018-04-01 10:39 | PN ---
Physical Exam: SUBJECTIVE: Patient seen and examined at the bedside. feels slightly better. slept better. some nausea/no vomiting/mild pain. OBJECTIVE: less tender on all quadrants with deep palpation hypoactive bowel sounds mild erythema on left flank, unchanged from yesterday mild nausea, no vomiting overnight no bm wbc stable and wnl. no fevers no tachycardia remy drain output not recorded overnight. apx 20cc straw color in drain Vital Signs Period Temp Pulse Resp BP Sys/Guzman Pulse Ox Last 24 Hr 98.2 F-99.6 F 84-91 20-22 114-135/65-85 94-95 GENERAL: Awake, alert, and fully oriented, laying in bed comfortably. HEAD: Normal with no signs of trauma. EYES: Pupils equal, round and reactive to light, extraocular movements intact, sclera anicteric, conjunctiva clear. No lid lag. EARS, NOSE, THROAT: Ears normal, nares patent, oropharynx clear without exudates. Moist mucous membranes. NECK: Normal range of motion, supple without lymphadenopathy, JVD, or masses. HEART: Regular rate and rhythm ABDOMEN: s/p lap appendectomy. dressing cdi remy drain placed. some nausea, no vomiting. MUSCULOSKELETAL: Normal range of motion at all joints. No bony deformities or tenderness. No CVA tenderness. UPPER EXTREMITIES: . No peripheral edema. LOWER EXTREMITIES: No peripheral edema. NEUROLOGICAL: Normal speech. Normal gait. PSYCHIATRIC: Cooperative. Good eye contact. Laboratory Results - last 24 hr 04/01/18 04/01/18 07:41 07:41 WBC 8.7 RBC 3.84 L Hgb 11.8 Hct 34.0 L MCV 88.5 MCH 30.7 MCHC 34.7 RDW 13.4 Plt Count 208 MPV 7.6 Absolute Neuts (auto) 6.6 Neutrophils % 75.8 Lymphocytes % 11.7 D Monocytes % 10.2 Eosinophils % 2.0 D Basophils % 0.3 Nucleated RBC % 0 Sodium 138 Potassium 3.9 Chloride 106 Carbon Dioxide 23 Anion Gap 9 BUN 15 Creatinine 0.9 Creat Clearance w eGFR > 60 Random Glucose 81 Calcium 7.7 L Magnesium 2.1 Active Medications Generic Name Dose Route Start Last Admin Trade Name Freq PRN Reason Stop Dose Admin Acetaminophen 1,000 mg 03/31/18 12:41 04/01/18 09:14 Ofirmev Injection - IVPB 1,000 mg Q6H PRN Administration PAIN LEVEL 4 - 6 Diphenhydramine HCl 12.5 mg 03/31/18 12:40 Benadryl Injection - IVPUSH Q4H PRN For Itching or insomnia Lactated Ringer's 1,000 ml in 1,000 mls @ 150 mls/hr 03/28/18 22:30 04/01/18 05:29 Lactated Ringers Solution IV 150 mls/hr ASDIR JESU Administration Piperacillin Sod/Tazobactam 50 mls @ 100 mls/hr 03/29/18 02:00 04/01/18 09:14 Sod 3.375 gm/ Dextrose IVPB 100 mls/hr Q8H-IV JESU Administration Protocol Famotidine/Sodium Chloride 20 mg in 50 mls @ 100 mls/hr 03/31/18 22:00 09:15 Pepcid 20 Mg Premixed Ivpb - IVPB 100 mls/hr BID JESU Administration Lorazepam 0.5 mg 03/31/18 12:10 03/31/18 22:06 Ativan Injection - IVPUSH 0.5 mg Q6H PRN Administration nausea/vomiting Morphine Sulfate 1 mg 03/31/18 12:40 Morphine Sulfate IVPUSH Q4H PRN PAIN LEVEL 7 - 10 Prochlorperazine Edisylate 10 mg 03/31/18 12:19 04/01/18 07:17 Compazine Injection - IVPB 10 mg Q4H PRN Administration NAUSEA AND/OR VOMITING ASSESSMENT/PLAN: Patient is a 17 year male with a significant past medical history of left- sided spontaneous pneumothorax in 2015 and was transferred and treated at [facility] ([facility] He then developed a second spontaneous pneumothomax on the left lung 2016 and again treated at [facility]. He presents to the ED on 03/28/18 for 1 day c/o of abdominal pain with associated nausea vomiting. He was found to have acute appendicitis and is s/p POD #4 lap appendectomy for gangrenous appendix. ct scan: acute appendicitis is identified. no abscess. periappendiceal edema and fluid accumulation is noted. also small amt of free fluid within the rectov esical space GI/ID Severe Sepsis 2/2 of acute appendicitis. s/p lap appendectomy POD #4 Lactic acidosis resolved leukocytosis resolved on zoysn coverage, day 4 pain management with morphine 1mg, can give companzine prior to morphine Keep NPO until seen and evaluated by surgery. advance diet per surgery. incentive spirometer Surgery following ID following Nausea/Vomiting Some nausea/no vomiting overnight Keep NPO and continue ivf hydration companzine, ativan prn for nausea/vomiting Monitor output, apx 20cc in remy drain, straw colored : bilateral testicular cysts No torsion Will need to see urology outpatient ho difficulty with urination. Pulmonary: Spontaneoius pneumothorax 2016 and 2017 Unclear etiology monitor patient closely post op. encourage incentive spirometer fen NPO. advance diet per surgery monitor electrolytes: calcium corrected 8.7, K normal limits. mag normal limits. prophy: SCDS, ambulatory patient. full code Problem List - Problems (1) Appendicitis Code(s): K37 - UNSPECIFIED APPENDICITIS Qualifiers: Appendicitis type: acute appendicitis Acute appendicitis type: other Qualified Code(s): K35.890 - Other acute appendicitis without perforation or gangrene; K35.89 - Other acute appendicitis (2) Chest wall pain Code(s): R07.89 - OTHER CHEST PAIN (3) Pneumothorax Code(s): J93.9 - PNEUMOTHORAX, UNSPECIFIED (4) Spontaneous pneumothorax Code(s): J93.83 - OTHER PNEUMOTHORAX (5) Sepsis Code(s): A41.9 - SEPSIS, UNSPECIFIED ORGANISM Qualifiers: Sepsis type: sepsis due to unspecified organism Qualified Code(s): A41.9 - Sepsis, unspecified organism Visit type - Emergency Visit Emergency Visit: Yes ED Registration Date: 03/28/18 Care time: The patient presented to the Emergency Department on the above date and was hospitalized for further evaluation of their emergent condition. - New Patient This patient is new to me today: No - Critical Care Critical Care patient: No - Discharge Referral Referred to [facility] Med P.C.: No
--- NOTE | 2018-04-01 12:11 | PN ---
Progress Note (short form) - Note Progress Note: 17yo M s/p lap appy. Pt seen and examined at bedside. Pt states that his abd pain is much improved from yesterday, but still feeling nauseous. Pt NPO since yesterday after multiple episodes of vomiting. Pt states his last BM was two days ago and he is not passing flatus. Last Vital Signs Temp Pulse Resp BP Pulse Ox 99.6 F 91 H 22 H 124/65 95 04/01/18 08:57 04/01/18 08:57 04/01/18 08:57 04/01/18 08:57 03/31/18 22:00 CBC, BMP 04/01/18 07:41 04/01/18 07:41 PE: Gen: A&Ox3 Resp: breathing comfortably Abd: soft, nontender, moderately distented. Drain in place with serous drainage. Problem List - Problems (1) Appendicitis Assessment/Plan: Plan -pt most likely developed an Ileus, keep NPO -encourage OOB/ambulate -f/up cultures Code(s): K37 - UNSPECIFIED APPENDICITIS Qualifiers: Appendicitis type: acute appendicitis Acute appendicitis type: other Qualified Code(s): K35.890 - Other acute appendicitis without perforation or gangrene; K35.89 - Other acute appendicitis
--- NOTE | 2018-04-01 14:03 | PN ---
Progress Note, Physician History of Present Illness: patient c/o of nausea but only at night no drain in drainage tube leaking around the side some redness on the left side no gases - Current Medication List Current Medications: Active Medications Acetaminophen (Ofirmev Injection -) 1,000 mg IVPB Q6H PRN PRN Reason: PAIN LEVEL 4 - 6 Last Admin: 04/01/18 09:14 Dose: 1,000 mg Diphenhydramine HCl (Benadryl Injection -) 12.5 mg IVPUSH Q4H PRN PRN Reason: For Itching or insomnia Lactated Ringer's (Lactated Ringers Solution) 1,000 ml in 1,000 mls @ 150 mls/ hr IV ASDIR JESU Last Admin: 04/01/18 05:29 Dose: 150 mls/hr Piperacillin Sod/Tazobactam (Sod 3.375 gm/ Dextrose) 50 mls @ 100 mls/hr IVPB Q8H-IV JESU; Protocol Last Admin: 04/01/18 09:14 Dose: 100 mls/hr Famotidine/Sodium Chloride (Pepcid 20 Mg Premixed Ivpb -) 20 mg in 50 mls @ 100 mls/hr IVPB BID JESU Last Admin: 04/01/18 09:15 Dose: 100 mls/hr Lorazepam (Ativan Injection -) 0.5 mg IVPUSH Q6H PRN PRN Reason: nausea/vomiting Last Admin: 03/31/18 22:06 Dose: 0.5 mg Morphine Sulfate (Morphine Sulfate) 1 mg IVPUSH Q4H PRN PRN Reason: PAIN LEVEL 7 - 10 Prochlorperazine Edisylate (Compazine Injection -) 10 mg IVPB Q4H PRN PRN Reason: NAUSEA AND/OR VOMITING Last Admin: 04/01/18 07:17 Dose: 10 mg - Objective Vital Signs: Vital Signs Temperature 99.6 F 04/01/18 08:57 Pulse Rate 91 H 04/01/18 08:57 Respiratory Rate 22 H 04/01/18 08:57 Blood Pressure 124/65 04/01/18 08:57 O2 Sat by Pulse Oximetry (%) 95 03/31/18 22:00 Constitutional: Yes: No Distress, Calm Cardiovascular: Yes: Regular Rate and Rhythm Respiratory: Yes: Regular, CTA Bilaterally Gastrointestinal: Yes: Normal Bowel Sounds, Soft Musculoskeletal: Yes: WNL Extremities: Yes: WNL Integumentary: Yes: Erythema (left side around the drain) Wound/Incision: Yes: Other Neurological: Yes: Alert, Oriented Psychiatric: Yes: Alert, Oriented Labs: CBC, BMP 04/01/18 07:41 04/01/18 07:41 INR, PTT INR 1.49 (0.82-1.09) H 03/28/18 14:48 Assessment/Plan patient coming with acute appendicitis ac appendicitis leukocytosis h/o of spontaneous ptx abd pain plan continue abx will deescalte once patient is stable wbc has normalized i think the drain is blocked rest as per the team
--- NOTE | 2018-04-01 18:01 | PATH ---
Surgical Pathology Report Patient Name: GAGAN MENDOZA [facility]. Rec. #: [id number] /Age/Gender: 2000 (Age: 17) / M Account: [id number] Location: [address] [place] [address]/[facility] Taken: 03/28/2018 Received: 03/29/2018 Reported: 04/01/2018 Physicians: MD Albaro Dawson F.NOfeliaPOfelia Specimen(s) Received APPENDIX Clinical History Acute appendicitis Final Diagnosis APPENDIX, APPENDECTOMY: SEVERE ACUTE TRANSMURAL APPENDICITIS AND PERIAPPENDICITIS. Electronically Signed Bambi Arias M.D. Gross Description Received in formalin, labeled "appendix," is a 7.5 cm. in length vermiform appendix with a stapled margin of resection and moderate attached fat. The serosa is mccain-boss with inflammation and attached exudate. Sectioning reveals a dilated lumen containing pus and fecal material. The wall of the appendix averages 0.1 cm. in thickness. Lottery Clerk sections are submitted in one cassette. /03/29/2018 [facility]03/29/2018
[2018-04-02] MEDS: LACTATED RINGERS SOLUTION 1,000 ML/1,000 ML INFUS.BAG IV SCH ×2 (01:00→09:17)
[2018-04-02] MEDS ORDERED: PIPERACILLIN/TAZOBACTAM 3.375 GM VIAL IVPB ONE ×3 (02:17→16:56)
[2018-04-02] MEDS ORDERED: DEXTROSE 5%-WATER - 50 ML IVPB ONE ×2 (02:18→09:03)
[2018-04-02] MEDS: PIPERACILLIN/TAZOB 3.375 GM 3.375 GM in DEXTROSE 5%-WATER - 50 ML IVPB SCH ×3 (02:21→17:23)
[2018-04-02 08:31] LABS: BASO % 0.2 % (0-2.0); EOS % 2.5 % (0-4.5); HEMATOCRIT 36.6 % (35.4-49); HEMOGLOBIN 12.6 GM/dL (11.7-16.9); LYMPH % 12.7 % (8-40); MCH 30.4 pg (25.7-33.7); MCHC 34.4 g/dl (32.0-35.9); MEAN CELL VOLUME 88.5 fl (80-96); MEAN PLT VOLUME 7.4 fl (7.5-11.1); MONO % 8.5 % (3.8-10.2); NEUT % 76.1 % (42.8-82.8); PLATELET COUNT 244 K/MM3 (134-434); RBC 4.13 M/mm3 (4.00-5.60); RDW 13.6 % (11.9-15.9); WHITE BLOOD COUNT 10.3 K/mm3 (4.0-10.0)
[2018-04-02 08:56] LABS: ALBUMIN 2.8 g/dl (3.4-5.0); ALK PHOS 59 U/L (45-117); ANION GAP 12 MMOL/L (8-16); BILIRUBIN,TOTAL 0.6 mg/dL (0.2-1); BLOOD UREA NITROGEN 12 mg/dL (7-18); CALCIUM 8.2 mg/dL (8.5-10.1); CHLORIDE 103 mmol/L (98-107); CO2 22 mmol/L (21-32); CREATININE 0.8 mg/dL (0.55-1.3); GLUCOSE,RANDOM 75 mg/dL (74-106); MAGNESIUM 2.3 mg/dL (1.8-2.4); POTASSIUM 3.6 mmol/L (3.5-5.1); SGOT/AST 33 U/L (15-37); SGPT/ALT 57 U/L (13-61); SODIUM 138 mmol/L (136-145); TOT PROT 5.9 g/dl (6.4-8.2)
[2018-04-02] MEDS ORDERED: PT OWN MED DRAWER 7, Y5N ONE (09:01)
--- NOTE | 2018-04-02 09:37 | PN ---
Progress Note (short form) - Note Progress Note: 17yo M s/p lap appy, pt seen and examined at bedside. Pt states that his abd pain is improved. Pt denies n/v, fever, chills. Pt states that he has been drinking water and doing well, eventhough he is NPO. Pt states that he has been ambulating a lot. Last Vital Signs Temp Pulse Resp BP Pulse Ox 99.8 F H 67 20 130/64 98 04/02/18 05:00 04/02/18 05:00 04/02/18 05:00 04/02/18 05:00 04/01/18 20:32 CBC, BMP 04/02/18 08:10 04/02/18 08:10 PE: Gen: A&O x3 Resp: breathing comfortably Abd: soft, nontender, nondistended, LLQ drain in place with serous drainage Ext: no edema Problem List - Problems (1) Appendicitis Assessment/Plan: Plan -will start pt on clears today because he is tolerating water -will pull EVENS drain today -OOB/ ambulate -will advance diet as tolerated. Code(s): K37 - UNSPECIFIED APPENDICITIS Qualifiers: Appendicitis type: acute appendicitis Acute appendicitis type: other Qualified Code(s): K35.890 - Other acute appendicitis without perforation or gangrene; K35.89 - Other acute appendicitis
[2018-04-02 09:56] LABS: ANISOCYTOSIS 0; MACROCYTOSIS 0; PLATELET ESTIMATE NORMAL
[2018-04-02] MEDS: FAMOTIDINE 20 MG/50 ML IVPB 20 MG/50 ML MG IVPB SCH ×2 (10:11→21:47)
--- NOTE | 2018-04-02 13:15 | PN ---
Progress Note, Physician History of Present Illness: stable no other issues drain draining still hypoactive bowel sounds - Current Medication List Current Medications: Active Medications Diphenhydramine HCl (Benadryl Injection -) 12.5 mg IVPUSH Q4H PRN PRN Reason: For Itching or insomnia Lactated Ringer's (Lactated Ringers Solution) 1,000 ml in 1,000 mls @ 150 mls/ hr IV ASDIR JESU Last Admin: 04/02/18 09:17 Dose: 150 mls/hr Piperacillin Sod/Tazobactam (Sod 3.375 gm/ Dextrose) 50 mls @ 100 mls/hr IVPB Q8H-IV JESU; Protocol Last Admin: 04/02/18 09:18 Dose: 100 mls/hr Famotidine/Sodium Chloride (Pepcid 20 Mg Premixed Ivpb -) 20 mg in 50 mls @ 100 mls/hr IVPB BID JESU Last Admin: 04/02/18 10:11 Dose: 100 mls/hr Lorazepam (Ativan Injection -) 0.5 mg IVPUSH Q6H PRN PRN Reason: nausea/vomiting Last Admin: 03/31/18 22:06 Dose: 0.5 mg Morphine Sulfate (Morphine Sulfate) 1 mg IVPUSH Q4H PRN PRN Reason: PAIN LEVEL 7 - 10 Prochlorperazine Edisylate (Compazine Injection -) 10 mg IVPB Q4H PRN PRN Reason: NAUSEA AND/OR VOMITING Last Admin: 04/01/18 07:17 Dose: 10 mg - Objective Vital Signs: Vital Signs Temperature 99.4 F 04/02/18 09:00 Pulse Rate 80 04/02/18 09:00 Respiratory Rate 20 04/02/18 09:00 Blood Pressure 125/71 04/02/18 09:00 O2 Sat by Pulse Oximetry (%) 98 04/01/18 20:32 Constitutional: Yes: Calm, Mild Distress Cardiovascular: Yes: Regular Rate and Rhythm Respiratory: Yes: Regular, CTA Bilaterally Gastrointestinal: Yes: Other (absent bowel sounds) Musculoskeletal: Yes: WNL Extremities: Yes: WNL Wound/Incision: Yes: Clean/Dry Neurological: Yes: Alert, Oriented Psychiatric: Yes: Alert, Oriented Labs: CBC, BMP 04/02/18 08:10 04/02/18 08:10 INR, PTT INR 1.49 (0.82-1.09) H 03/28/18 14:48 Assessment/Plan patient coming with acute appendicitis ac appendicitis leukocytosis h/o of spontaneous ptx abd pain plan continue abx await for gi fn to return nutrition rest as per surgery
--- NOTE | 2018-04-02 17:56 | PN ---
Physical Exam: SUBJECTIVE: Patient seen and examined. Reports LLQ tenderness at drain site, leaking. Feels weak, dizzy when standing OBJECTIVE: Vital Signs Period Temp Pulse Resp BP Sys/Guzman Pulse Ox Last 24 Hr 98.2 F-99.8 F 67-80 19-20 120-131/64-74 98 PE Neuro: alert, awake, cn 2- 12 intact Pulm: CTAB CV: s1 s2 rrr Abd: x3 incision site LLQ tenderness, + leakage Ext: no le edema Laboratory Results - last 24 hr 04/02/18 04/02/18 08:10 08:10 WBC 10.3 H RBC 4.13 Hgb 12.6 Hct 36.6 MCV 88.5 MCH 30.4 MCHC 34.4 RDW 13.6 Plt Count 244 MPV 7.4 L Absolute Neuts (auto) 7.9 Neutrophils % 76.1 Neutrophils % (Manual) 71.0 Band Neutrophils % 0.0 Lymphocytes % 12.7 Lymphocytes % (Manual) 16.0 Monocytes % 8.5 Monocytes % (Manual) 6 Eosinophils % 2.5 Eosinophils % (Manual) 4.0 Basophils % 0.2 Basophils % (Manual) 0.0 Myelocytes % (Man) 2 Promyelocytes % (Man) 0 Blast Cells % (Manual) 0 Nucleated RBC % 0 Metamyelocytes 0 Hypochromia 0 Platelet Estimate Normal Polychromasia 0 Poikilocytosis 0 Anisocytosis 0 Microcytosis 0 Macrocytosis 0 Sodium 138 Potassium 3.6 Chloride 103 Carbon Dioxide 22 Anion Gap 12 BUN 12 Creatinine 0.8 Creat Clearance w eGFR > 60 Random Glucose 75 Calcium 8.2 L Magnesium 2.3 Total Bilirubin 0.6 AST 33 ALT 57 Alkaline Phosphatase 59 Total Protein 5.9 L Albumin 2.8 L Active Medications Generic Name Dose Route Start Last Admin Trade Name Freq PRN Reason Stop Dose Admin Diphenhydramine HCl 12.5 mg 03/31/18 12:40 Benadryl Injection - IVPUSH Q4H PRN For Itching or insomnia Lactated Ringer's 1,000 ml in 1,000 mls @ 150 mls/hr 03/28/18 22:30 04/02/18 09:17 Lactated Ringers Solution IV 150 mls/hr ASDIR JESU Administration Piperacillin Sod/Tazobactam 50 mls @ 100 mls/hr 03/29/18 02:00 04/02/18 17:23 Sod 3.375 gm/ Dextrose IVPB 100 mls/hr Q8H-IV JESU Administration Protocol Famotidine/Sodium Chloride 20 mg in 50 mls @ 100 mls/hr 03/31/18 22:00 10:11 Pepcid 20 Mg Premixed Ivpb - IVPB 100 mls/hr BID JESU Administration Lorazepam 0.5 mg 03/31/18 12:10 03/31/18 22:06 Ativan Injection - IVPUSH 0.5 mg Q6H PRN Administration nausea/vomiting Morphine Sulfate 1 mg 03/31/18 12:40 Morphine Sulfate IVPUSH Q4H PRN PAIN LEVEL 7 - 10 Prochlorperazine Edisylate 10 mg 03/31/18 12:19 04/01/18 07:17 Compazine Injection - IVPB 10 mg Q4H PRN Administration NAUSEA AND/OR VOMITING Assessment: 17 year male with a significant past medical history of left-sided spontaneous pneumothorax in 2015 and was transferred and treated at [facility] He then developed a second spontaneous pneumothomax on the left lung 2016 and again treated at [facility]. He presented to the ED on 03/28/18 for 1 day c/o of abdominal pain with associated nausea vomiting. He was found to have acute appendicitis and is s/p POD #5 lap appendectomy for gangrenous appendix. Plan: 1. Severe Sepsis 2/2 of acute appendicitis. s/p lap appendectomy 03/29 - Drain pulled today - Lactic acidosis resolves - Zoysn coverage, day 5 - Culture pending - Pain management with morphine 1mg, can give compazine prior to morphine - Surgery, ID following 2. Abdominal pain - Abd Xray shows small bowel obstruction - NPO - NGT if needed 3. Nausea/Vomiting - Change IVF to NS - Compazine, ativan prn for nausea/vomiting - Pepcid is only medication that works per pt 4. Bilateral testicular cysts - No torsion - Will need to see urology outpatient Visit type - Emergency Visit Emergency Visit: Yes ED Registration Date: 03/28/18 Care time: The patient presented to the Emergency Department on the above date and was hospitalized for further evaluation of their emergent condition. - New Patient This patient is new to me today: Yes Date on this admission: 04/02/18 - Critical Care Critical Care patient: No
[2018-04-02] MEDS ORDERED: ACETAMINOPHEN 1000 MG/100 ML VIAL (NON FORMULARY) IVPB ONE (20:50)
[2018-04-03] MEDS ORDERED: PIPERACILLIN/TAZOBACTAM 3.375 GM VIAL IVPB ONE ×3 (01:34→17:59)
[2018-04-03] MEDS ORDERED: DEXTROSE 5%-WATER - 50 ML IVPB ONE ×3 (01:34→17:59)
[2018-04-03] MEDS: SODIUM CHLORIDE 1,000 ML IV SCH ×2 (01:43→19:02)
[2018-04-03] MEDS: PIPERACILLIN/TAZOB 3.375 GM 3.375 GM in DEXTROSE 5%-WATER - 50 ML IVPB SCH ×3 (01:44→18:10)
--- NOTE | 2018-04-03 08:50 | PN ---
Progress Note (short form) - Note Progress Note: POD 6, s/p lap appendectomy Pt seen and examined. States he is feeling unchanged this morning. Continues to have abdominal swelling, has discomfort in his LLQ where EVENS drain was. Is NPO, but has juice bedside brought by mom that he has been drinking. No flatus. Denies cp/sob, n/v/d, calf pain or edema. Vital Signs Temp 98.9 F 04/03/18 06:08 Pulse 64 04/03/18 06:08 Resp 20 04/03/18 06:08 BP 112/57 L 04/03/18 06:08 Pulse Ox 98 04/02/18 21:00 Intake & Output 04/02/18 04/02/18 04/03/18 11:59 23:59 11:59 Intake Total 1725 0 1200 Output Total 5 10 Balance 1720 -10 1200 Intake: IV 1500 1150 LACTATED RINGERS SOLUTION 1500 1,000 ml In 1,000 ml @ 150 mls/hr IV ASDIR JESU Rx#:[id number] Normal Saline - 1,000 ml 1150 @ 100 mls/hr IV ASDIR JESU Rx#:[id number] IVPB 50 50 Oral 175 0 Output: Drainage 5 10 Left Lower Abdomen 5 10 Other: Voiding Method Toilet Toilet Bowel Movement No No CBC, BMP 04/02/18 08:10 04/02/18 08:10 Gen: awake, alert, nad. Resp: cta b/l anteriorly CV: rrr, s1s2 Abdo: Distended, soft, ttp LLQ. Hypoactive bowel sounds. Dressing c/d/i. A/P: 17 y/o M w/ PMHx spontaneous pneumothorax admitted 03/28 with abdominal pain , found to have acute appendicitis, now s/p laparoscopic appendectomy. Afebrile, VSS. Labs pending. No flatus, no BM. -Remain NPO -OOB/ambulate -Full labs -Repeat abdo xray in AM -Will recheck pt later this afternoon pt seen and examined with attending Dr Woo
[2018-04-03] MEDS: FAMOTIDINE 20 MG/50 ML IVPB 20 MG/50 ML MG IVPB SCH ×2 (09:33→22:29)
--- NOTE | 2018-04-03 13:35 | PN ---
Progress Note, Physician History of Present Illness: still with no gi function - Current Medication List Current Medications: Active Medications Diphenhydramine HCl (Benadryl Injection -) 12.5 mg IVPUSH Q4H PRN PRN Reason: For Itching or insomnia Piperacillin Sod/Tazobactam (Sod 3.375 gm/ Dextrose) 50 mls @ 100 mls/hr IVPB Q8H-IV JESU; Protocol Last Admin: 04/03/18 09:33 Dose: 100 mls/hr Famotidine/Sodium Chloride (Pepcid 20 Mg Premixed Ivpb -) 20 mg in 50 mls @ 100 mls/hr IVPB BID JESU Last Admin: 04/03/18 09:33 Dose: 100 mls/hr Sodium Chloride (Normal Saline -) 1,000 mls @ 100 mls/hr IV ASDIR JESU Last Admin: 04/03/18 01:43 Dose: 100 mls/hr Morphine Sulfate (Morphine Sulfate) 1 mg IVPUSH Q4H PRN PRN Reason: PAIN LEVEL 7 - 10 Prochlorperazine Edisylate (Compazine Injection -) 10 mg IVPB Q4H PRN PRN Reason: NAUSEA AND/OR VOMITING Last Admin: 04/01/18 07:17 Dose: 10 mg - Objective Vital Signs: Vital Signs Temperature 99.0 F 04/03/18 09:09 Pulse Rate 76 04/03/18 09:09 Respiratory Rate 20 04/03/18 09:09 Blood Pressure 128/70 04/03/18 09:09 O2 Sat by Pulse Oximetry (%) 98 04/02/18 21:00 Constitutional: Yes: Calm Cardiovascular: Yes: Regular Rate and Rhythm Respiratory: Yes: Regular, CTA Bilaterally Gastrointestinal: Yes: Other (absent bowel sounds) Musculoskeletal: Yes: WNL Extremities: Yes: WNL Neurological: Yes: Alert, Oriented Psychiatric: Yes: Alert, Oriented Labs: CBC, BMP 04/02/18 08:10 04/02/18 08:10 INR, PTT INR 1.49 (0.82-1.09) H 03/28/18 14:48 Assessment/Plan patient coming with acute appendicitis ac appendicitis leukocytosis h/o of spontaneous ptx abd pain plan continue abx await for gi fn to return nutrition rest as per surgery
[2018-04-03] MEDS ORDERED: KETOROLAC TROMETHAMINE 30 MG/1 ML VIAL IVPUSH PRN (14:43)
[2018-04-03] MEDS ORDERED: ACETAMINOPHEN 1000 MG/100 ML VIAL (NON FORMULARY) IVPB PRN (14:43)
--- NOTE | 2018-04-03 15:13 | PN ---
Progress Note (short form) - Note Progress Note: Subjective: The patient was seen and examined at the bedside, he has asked that his mother and grandfather not be included in any medical discussions regarding his care. He denies passing gas but states he is feeling the urge to. Abd x-ray today with distended loops of small bowel with multiple fluid level. Small amount of air seen in the colon. NGT placed by surgery todays Current Medications Generic Name Dose Route Start Last Admin Trade Name Freq PRN Reason Stop Dose Admin Acetaminophen 1,000 mg 04/03/18 14:43 Ofirmev Injection - IVPB 04/04/18 08:46 Q6H PRN PAIN LEVEL 4 - 6 Diphenhydramine HCl 12.5 mg 03/31/18 12:40 Benadryl Injection - IVPUSH Q4H PRN For Itching or insomnia Heparin Sodium (Porcine) 5,000 unit 04/03/18 22:00 Heparin - SQ BID JESU Piperacillin Sod/Tazobactam 50 mls @ 100 mls/hr 03/29/18 02:00 04/03/18 09:33 Sod 3.375 gm/ Dextrose IVPB 100 mls/hr Q8H-IV JESU Administration Protocol Famotidine/Sodium Chloride 20 mg in 50 mls @ 100 mls/hr 03/31/18 22:00 09:33 Pepcid 20 Mg Premixed Ivpb - IVPB 100 mls/hr BID JESU Administration Sodium Chloride 1,000 mls @ 100 mls/hr 04/02/18 18:15 04/03/18 01:43 Normal Saline - IV 100 mls/hr ASDIR JESU Administration Ketorolac Tromethamine 30 mg 04/03/18 14:43 04/03/18 14:58 Toradol Injection - IVPUSH 04/08/18 14:42 30 mg Q8H PRN Administration PAIN LEVEL 1-5 Morphine Sulfate 1 mg 03/31/18 12:40 Morphine Sulfate IVPUSH Q4H PRN PAIN LEVEL 7 - 10 Prochlorperazine Edisylate 10 mg 03/31/18 12:19 04/01/18 07:17 Compazine Injection - IVPB 10 mg Q4H PRN Administration NAUSEA AND/OR VOMITING Objective: Vital Signs Period Temp Pulse Resp BP Sys/Guzman Pulse Ox Last 24 Hr 98.5 F-99.0 F 64-76 16-20 112-128/57-70 98 Physical Exam: General: NAD, A&Ox3 Abd: Soft, lap sites c/d/i. Absent bowel sounds CBCD WBC 10.3 K/mm3 (4.0-10.0) H 04/02/18 08:10 RBC 4.13 M/mm3 (4.00-5.60) 04/02/18 08:10 Hgb 12.6 GM/dL (11.7-16.9) 04/02/18 08:10 Hct 36.6 % (35.4-49) 04/02/18 08:10 MCV 88.5 fl (80-96) 04/02/18 08:10 MCHC 34.4 g/dl (32.0-35.9) 04/02/18 08:10 RDW 13.6 % (11.9-15.9) 04/02/18 08:10 Plt Count 244 K/MM3 (134-434) 04/02/18 08:10 MPV 7.4 fl (7.5-11.1) L 04/02/18 08:10 CMP Sodium 138 mmol/L (136-145) 04/02/18 08:10 Potassium 3.6 mmol/L (3.5-5.1) 04/02/18 08:10 Chloride 103 mmol/L (98-107) 04/02/18 08:10 Carbon Dioxide 22 mmol/L (21-32) 04/02/18 08:10 Anion Gap 12 MMOL/L (8-16) 04/02/18 08:10 BUN 12 mg/dL (7-18) 04/02/18 08:10 Creatinine 0.8 mg/dL (0.55-1.3) 04/02/18 08:10 Creat Clearance w eGFR > 60 (>60) 04/02/18 08:10 Random Glucose 75 mg/dL (74-106) 04/02/18 08:10 Calcium 8.2 mg/dL (8.5-10.1) L 04/02/18 08:10 Total Bilirubin 0.6 mg/dL (0.2-1) 04/02/18 08:10 AST 33 U/L (15-37) 04/02/18 08:10 ALT 57 U/L (13-61) 04/02/18 08:10 Alkaline Phosphatase 59 U/L (45-117) 04/02/18 08:10 Total Protein 5.9 g/dl (6.4-8.2) L 04/02/18 08:10 Albumin 2.8 g/dl (3.4-5.0) L 04/02/18 08:10 Microbiology 03/28/18 21:00 Peritoneal Fluid Gram Stain - Final 03/28/18 21:00 Peritoneal Fluid Body Fluid Culture - Final Streptococcus Milleri Group Diphtheroid/Corynebacterium 03/28/18 21:00 Peritoneal Fluid Anaerobic Culture - Preliminary Pending Organism 03/28/18 09:50 Blood - Peripheral Venous Blood Culture - Final NO GROWTH AFTER 5 DAYS INCUBATION 03/28/18 08:40 Blood - Peripheral Venous Blood Culture - Final NO GROWTH AFTER 5 DAYS INCUBATION Assessment: This is a 17 year old male with PMHx of left-sided spontaneous pneumothorax in 2015 and was transferred and treated at [facility] ([facility] He then developed a second spontaneous pneumothomax on the left lung 2016 and again treated at [facility]. He presented to the ED on 03/28/18 for 1 day c/o of abdominal pain with associated nausea vomiting. He was found to have acute appendicitis and is s/p POD #6 lap appendectomy for gangrenous appendix. Plan: 1. Severe Sepsis 2/2 of acute appendicitis. s/p lap appendectomy 03/28 - Continue Zosyn, day 6 - Lactic acidosis resolves - Surgery, ID following 2. Post-op SBO - Abd Xray 04/02 shows small bowel obstruction - Abd X-ray today with distended loops of small bowel with multiple air fluid levels - NGT placed by surgery today. Monitor output closely - NPO 3. Nausea/Vomiting - Resolved 4. Bilateral testicular cysts - No torsion - Will need to see urology outpatient Visit type - Emergency Visit Emergency Visit: Yes ED Registration Date: 03/28/18 Care time: The patient presented to the Emergency Department on the above date and was hospitalized for further evaluation of their emergent condition. - New Patient This patient is new to me today: Yes Date on this admission: 04/03/18 - Critical Care Critical Care patient: No
[2018-04-03 15:29] LABS: BASO % 0.3 % (0-2.0); EOS % 2.3 % (0-4.5); HEMATOCRIT 38.3 % (35.4-49); HEMOGLOBIN 13.2 GM/dL (11.7-16.9); LYMPH % 10.6 % (8-40); MCH 30.8 pg (25.7-33.7); MCHC 34.4 g/dl (32.0-35.9); MEAN CELL VOLUME 89.4 fl (80-96); MEAN PLT VOLUME 7.4 fl (7.5-11.1); MONO % 8.2 % (3.8-10.2); NEUT % 78.6 % (42.8-82.8); PLATELET COUNT 290 K/MM3 (134-434); RBC 4.28 M/mm3 (4.00-5.60); RDW 13.5 % (11.9-15.9); WHITE BLOOD COUNT 11.6 K/mm3 (4.0-10.0)
[2018-04-03] MEDS ORDERED: LORazepam 2 MG/ML SDV VIAL IVPUSH PRN (15:49)
--- NOTE | 2018-04-03 15:53 | PROC ---
Procedure Note Procedure: ngt inserted and advanced to 65cm. Bilious return and air returned, it was placed to suction. Pt tolerated the procedure well. Air auscultated over the stomach when it was flushed.
[2018-04-03 16:02] LABS: ANION GAP 11 MMOL/L (8-16); BLOOD UREA NITROGEN 10 mg/dL (7-18); CALCIUM 8.6 mg/dL (8.5-10.1); CHLORIDE 105 mmol/L (98-107); CO2 25 mmol/L (21-32); CREATININE 0.9 mg/dL (0.55-1.3); GLUCOSE,RANDOM 82 mg/dL (74-106); POTASSIUM 3.7 mmol/L (3.5-5.1); SODIUM 141 mmol/L (136-145)
[2018-04-03 16:41] LABS: PLATELET ESTIMATE ADEQUATE
[2018-04-03] MEDS: HEPARIN NA (PORCINE) 5,000 UNITS/ML 1ML VIAL SQ SCH (22:29)
[2018-04-03] MEDS ORDERED: BENZOCAINE/MENTH/CETYLPYRD CL 1 EACH LOZENGE MM PRN (23:28)
[2018-04-04] MEDS ORDERED: PIPERACILLIN/TAZOBACTAM 3.375 GM VIAL IVPB ONE ×3 (01:21→17:49)
[2018-04-04] MEDS ORDERED: DEXTROSE 5%-WATER - 50 ML IVPB ONE ×3 (01:22→17:49)
[2018-04-04] MEDS: PIPERACILLIN/TAZOB 3.375 GM 3.375 GM in DEXTROSE 5%-WATER - 50 ML IVPB SCH ×3 (02:21→17:55)
[2018-04-04 08:20] LABS: BASO % 0.4 % (0-2.0); EOS % 3.1 % (0-4.5); HEMOGLOBIN 11.8 GM/dL (11.7-16.9); LYMPH % 18.4 % (8-40); MCH 30.1 pg (25.7-33.7); MCHC 33.6 g/dl (32.0-35.9); MEAN CELL VOLUME 89.6 fl (80-96); MEAN PLT VOLUME 7.4 fl (7.5-11.1); MONO % 8.2 % (3.8-10.2); NEUT % 69.9 % (42.8-82.8); PLATELET COUNT 260 K/MM3 (134-434); RBC 3.91 M/mm3 (4.00-5.60); RDW 13.4 % (11.9-15.9); WHITE BLOOD COUNT 7.9 K/mm3 (4.0-10.0)
[2018-04-04 08:29] LABS: ANION GAP 9 MMOL/L (8-16); BLOOD UREA NITROGEN 11 mg/dL (7-18); CHLORIDE 105 mmol/L (98-107); CO2 25 mmol/L (21-32); GLUCOSE,RANDOM 64 mg/dL (74-106); SODIUM 138 mmol/L (136-145)
[2018-04-04 09:46] LABS: URINE APPEARANCE CLEAR; URINE BILIRUBIN NEGATIVE (<2.0 mg/dL); URINE COLOR YELLOW; URINE GLUCOSE (UA) NEGATIVE (NEGATIVE); URINE KETONE 2+ (NEGATIVE); URINE LEUK ESTERASE NEGATIVE (NEGATIVE); URINE NITRITE NEGATIVE (NEGATIVE); URINE PROTEIN NEGATIVE (NEGATIVE); URINE UROBILINOGEN NEGATIVE mg/dL (0.2-1.0)
--- NOTE | 2018-04-04 10:10 | PN ---
Progress Note (short form) - Note Progress Note: 17yo M s/p lap appy, now with Ileus. Pt seen and examined at bedside. Pt had NG tube placed yesterday with only about 200cc output since then. Pt denies n/v , fever, chills. Pt still not passing flatus or BM. Pt denies abd pain. Last Vital Signs Temp Pulse Resp BP Pulse Ox 98.8 F 74 17 127/67 97 04/04/18 06:00 04/04/18 06:00 04/03/18 21:00 04/04/18 06:00 04/03/18 21:00 CBC, BMP 04/04/18 07:00 04/04/18 07:00 PE: Gen: A&O x3 Resp: breathing comfortably Abd: soft, mild distension, nontender, incisions are clean with no erythema or discharge NGT in place with bilious drainage in canister Problem List - Problems (1) Appendicitis Assessment/Plan: Plan -cont NPO, IVF, NGT -f/up abd xray -OOB/ambulate -pain control Code(s): K37 - UNSPECIFIED APPENDICITIS Qualifiers: Appendicitis type: acute appendicitis Acute appendicitis type: other Qualified Code(s): K35.890 - Other acute appendicitis without perforation or gangrene; K35.89 - Other acute appendicitis
[2018-04-04] MEDS: HEPARIN NA (PORCINE) 5,000 UNITS/ML 1ML VIAL SQ SCH (10:43)
[2018-04-04 11:15] LABS: ACANTHOCYTES 0; ANISOCYTOSIS 0; HELMET CELLS 0; HOWELL-JOLLY BODIES 0; MACROCYTOSIS 0; OVALOCYTE 0; PLATELET ESTIMATE NORMAL; ROULEAU 0; SICKELED CELLS 0; TARGET CELLS 0; TEAR DROP CELLS 0; TOXIC GRANULATION 0
[2018-04-04] MEDS: FAMOTIDINE 20 MG/50 ML IVPB 20 MG/50 ML MG IVPB SCH ×2 (11:34→22:09)
--- NOTE | 2018-04-04 12:33 | PN ---
Progress Note, Physician History of Present Illness: repeat xray noted ng tube in place dilated bowel loops - Current Medication List Current Medications: Active Medications Benzocaine/Menthol (Cepacol Lozenge -) 1 each MM PRN PRN PRN Reason: SORE THROAT Last Admin: 04/03/18 23:43 Dose: 1 each Diphenhydramine HCl (Benadryl Injection -) 12.5 mg IVPUSH Q4H PRN PRN Reason: For Itching or insomnia Last Admin: 04/03/18 23:46 Dose: 12.5 mg Heparin Sodium (Porcine) (Heparin -) 5,000 unit SQ BID JESU Last Admin: 04/04/18 10:43 Dose: 5,000 unit Piperacillin Sod/Tazobactam (Sod 3.375 gm/ Dextrose) 50 mls @ 100 mls/hr IVPB Q8H-IV JESU; Protocol Last Admin: 04/04/18 12:01 Dose: 100 mls/hr Famotidine/Sodium Chloride (Pepcid 20 Mg Premixed Ivpb -) 20 mg in 50 mls @ 100 mls/hr IVPB BID JESU Last Admin: 04/04/18 11:34 Dose: 100 mls/hr Sodium Chloride (Normal Saline -) 1,000 mls @ 100 mls/hr IV ASDIR JESU Last Admin: 04/03/18 19:02 Dose: 100 mls/hr Ketorolac Tromethamine (Toradol Injection -) 30 mg IVPUSH Q8H PRN PRN Reason: PAIN LEVEL 1-5 Stop: 04/08/18 14:42 Last Admin: 04/03/18 14:58 Dose: 30 mg Lorazepam (Ativan Injection -) 0.5 mg IVPUSH Q6H PRN PRN Reason: ANXIETY Last Admin: 04/03/18 15:52 Dose: 0.5 mg Morphine Sulfate (Morphine Sulfate) 1 mg IVPUSH Q4H PRN PRN Reason: PAIN LEVEL 7 - 10 Last Admin: 04/03/18 23:43 Dose: 1 mg Prochlorperazine Edisylate (Compazine Injection -) 10 mg IVPB Q4H PRN PRN Reason: NAUSEA AND/OR VOMITING Last Admin: 04/01/18 07:17 Dose: 10 mg - Objective Vital Signs: Vital Signs Temperature 98.2 F 04/04/18 09:00 Pulse Rate 70 04/04/18 09:00 Respiratory Rate 20 04/04/18 09:00 Blood Pressure 133/84 04/04/18 09:00 O2 Sat by Pulse Oximetry (%) 97 04/03/18 21:00 Constitutional: Yes: Calm, Mild Distress Cardiovascular: Yes: Regular Rate and Rhythm Respiratory: Yes: Regular, CTA Bilaterally Gastrointestinal: Yes: Other (absent bowel sounds ng in place) Musculoskeletal: Yes: WNL Extremities: Yes: WNL Wound/Incision: Yes: Clean/Dry Neurological: Yes: Alert, Oriented Psychiatric: Yes: Alert, Oriented Labs: CBC, BMP 04/04/18 07:00 04/04/18 07:00 INR, PTT INR 1.49 (0.82-1.09) H 03/28/18 14:48 Assessment/Plan patient coming with acute appendicitis ac appendicitis leukocytosis h/o of spontaneous ptx abd pain plan continue abx await for gi fn to return ng tube suction hydration awaiting for sensitivities of the organism rest as per the team
--- NOTE | 2018-04-04 14:57 | PN ---
Physical Exam: SUBJECTIVE: Patient seen and examined. Acid reflux resolved, no vomiting. No acute complaints, would like to go home. Understands what is happening re: sbo. No more drainage from LLQ OBJECTIVE: Vital Signs Period Temp Pulse Resp BP Sys/Guzman Pulse Ox Last 24 Hr 98.2 F-98.8 F 70-74 17-20 127-133/67-84 97 PE Neuro: alert, awake, cn 2- 12 intact HEENT: + NGT green bilious output Pulm: CTAB CV: s1 s2 rrr no mrg Abd: + bs, mild distention, no tenderness Ext: no le edema Laboratory Results - last 24 hr 04/03/18 04/03/18 04/04/18 15:20 15:20 05:00 WBC 11.6 H RBC 4.28 Hgb 13.2 Hct 38.3 MCV 89.4 MCH 30.8 MCHC 34.4 RDW 13.5 Plt Count 290 MPV 7.4 L Absolute Neuts (auto) 9.1 H Total Counted 100 Neutrophils % 78.6 Neutrophils % (Manual) 74.0 Band Neutrophils % 2.0 Lymphocytes % 10.6 Lymphocytes % (Manual) 12.0 D Monocytes % 8.2 Monocytes % (Manual) 6 Eosinophils % 2.3 Eosinophils % (Manual) 4.0 Basophils % 0.3 Basophils % (Manual) Myelocytes % (Man) Promyelocytes % (Man) Blast Cells % (Manual) Nucleated RBC % 0 Metamyelocytes Hypochromia Toxic Granulation Dohle Bodies Platelet Estimate Adequate Platelet Comment No clumping noted Polychromasia Poikilocytosis Basophilic Stippling Anisocytosis Microcytosis Macrocytosis Spherocytes Sickle Cells Target Cells Tear Drop Cells Ovalocytes Stomatocytes Helmet Cells [place] Bodies Gilliam Rings Michael Cells Acanthocytes (Spur) Rouleaux Fragmented RBCs Schistocytes Sodium 141 Potassium 3.7 Chloride 105 Carbon Dioxide 25 Anion Gap 11 BUN 10 Creatinine 0.9 Creat Clearance w eGFR > 60 Random Glucose 82 Calcium 8.6 Urine Color Yellow Urine Appearance Clear Urine pH 5.0 Ur Specific [place] 1.028 Urine Protein Negative Urine Glucose (UA) Negative Urine Ketones 2+ H Urine Blood Negative Urine Nitrite Negative Urine Bilirubin Negative Urine Urobilinogen Negative Ur Leukocyte Esterase Negative 04/04/18 04/04/18 07:00 07:00 WBC 7.9 RBC 3.91 L Hgb 11.8 Hct 35.0 L MCV 89.6 MCH 30.1 MCHC 33.6 RDW 13.4 Plt Count 260 MPV 7.4 L Absolute Neuts (auto) 5.5 Total Counted Neutrophils % 69.9 Neutrophils % (Manual) 70.0 Band Neutrophils % 0.0 Lymphocytes % 18.4 D Lymphocytes % (Manual) 19.0 D Monocytes % 8.2 Monocytes % (Manual) 7 Eosinophils % 3.1 Eosinophils % (Manual) 2.0 Basophils % 0.4 Basophils % (Manual) 0.0 Myelocytes % (Man) 0 D Promyelocytes % (Man) 0 Blast Cells % (Manual) 0 Nucleated RBC % 0 Metamyelocytes 0 Hypochromia 0 Toxic Granulation 0 Dohle Bodies 0 Platelet Estimate Normal Platelet Comment Polychromasia 0 Poikilocytosis 0 Basophilic Stippling 0 Anisocytosis 0 Microcytosis 0 Macrocytosis 0 Spherocytes 0 Sickle Cells 0 Target Cells 0 Tear Drop Cells 0 Ovalocytes 0 Stomatocytes 0 Helmet Cells 0 [place] Bodies 0 Gilliam Rings 0 [place] Cells 0 Acanthocytes (Spur) 0 Rouleaux 0 Fragmented RBCs 0 Schistocytes 0 Sodium 138 Potassium 4.0 Chloride 105 Carbon Dioxide 25 Anion Gap 9 BUN 11 Creatinine 1.0 Creat Clearance w eGFR > 60 Random Glucose 64 L Calcium 8.0 L Urine Color Urine Appearance Urine pH Ur Specific [place] Urine Protein Urine Glucose (UA) Urine Ketones Urine Blood Urine Nitrite Urine Bilirubin Urine Urobilinogen Ur Leukocyte Esterase Active Medications Generic Name Dose Route Start Last Admin Trade Name Freq PRN Reason Stop Dose Admin Benzocaine/Menthol 1 each 04/03/18 23:28 04/03/18 23:43 Cepacol Lozenge - MM 1 each PRN PRN Administration SORE THROAT Diphenhydramine HCl 12.5 mg 03/31/18 12:40 04/03/18 23:46 Benadryl Injection - IVPUSH 12.5 mg Q4H PRN Administration For Itching or insomnia Heparin Sodium (Porcine) 5,000 unit 04/03/18 22:00 04/04/18 10:43 Heparin - SQ 5,000 unit BID JESU Administration Piperacillin Sod/Tazobactam 50 mls @ 100 mls/hr 03/29/18 02:00 04/04/18 12:01 Sod 3.375 gm/ Dextrose IVPB 100 mls/hr Q8H-IV JESU Administration Protocol Famotidine/Sodium Chloride 20 mg in 50 mls @ 100 mls/hr 03/31/18 22:00 11:34 Pepcid 20 Mg Premixed Ivpb - IVPB 100 mls/hr BID JESU Administration Sodium Chloride 1,000 mls @ 100 mls/hr 04/02/18 18:15 04/03/18 19:02 Normal Saline - IV 100 mls/hr ASDIR JESU Administration Ketorolac Tromethamine 30 mg 04/03/18 14:43 04/03/18 14:58 Toradol Injection - IVPUSH 04/08/18 14:42 30 mg Q8H PRN Administration PAIN LEVEL 1-5 Lorazepam 0.5 mg 04/03/18 15:49 04/03/18 15:52 Ativan Injection - IVPUSH 0.5 mg Q6H PRN Administration ANXIETY Morphine Sulfate 1 mg 03/31/18 12:40 04/03/18 23:43 Morphine Sulfate IVPUSH 1 mg Q4H PRN Administration PAIN LEVEL 7 - 10 Prochlorperazine Edisylate 10 mg 03/31/18 12:19 04/01/18 07:17 Compazine Injection - IVPB 10 mg Q4H PRN Administration NAUSEA AND/OR VOMITING Microbiology 03/28/18 21:00 Gram Stain - Final Peritoneal Fluid Body Fluid Culture - Final Streptococcus Milleri Group Diphtheroid/Corynebacterium Anaerobic Culture - Preliminary Pending Organism Assessment: This is a 17 year old male with PMHx of left-sided spontaneous pneumothorax in 2015 and was transferred and treated at [facility] ([facility]). He then developed a second spontaneous pneumothomax on the left lung 2016 and again treated at [facility]. He presented to the ED on 03/28/18 for 1 day c/o of abdominal pain with associated nausea vomiting. He was found to have acute appendicitis s/p lap appendectomy for gangrenous appendix. Plan: 1. Severe Sepsis 2/2 of acute appendicitis. s/p lap appendectomy 03/28 - Continue Zosyn, day 7 - Follow final cx - Lactic acidosis resolves - Surgery, ID following 2. Post-op SBO - Abd xray with air fluid levels, dilated loops - Abd xray in AM - Maintain NGT to suction - NPO 3. Nausea/Vomiting - Resolved 4. Bilateral testicular cysts - No torsion - Will need to see urology outpatient 5. DVT - Lovenox sq Visit type - Emergency Visit Emergency Visit: Yes ED Registration Date: 03/28/18 Care time: The patient presented to the Emergency Department on the above date and was hospitalized for further evaluation of their emergent condition. - New Patient This patient is new to me today: No - Critical Care Critical Care patient: No
[2018-04-04] MEDS: SODIUM CHLORIDE 1,000 ML IV SCH (17:59)
[2018-04-05] MEDS: SODIUM CHLORIDE 1,000 ML IV SCH ×2 (06:00→20:25)
[2018-04-05 07:45] LABS: ANION GAP 13 MMOL/L (8-16); BLOOD UREA NITROGEN 10 mg/dL (7-18); CHLORIDE 101 mmol/L (98-107); CO2 21 mmol/L (21-32); CREATININE 0.7 mg/dL (0.55-1.3); GLUCOSE,RANDOM 58 mg/dL (74-106); POTASSIUM 4.1 mmol/L (3.5-5.1); SODIUM 135 mmol/L (136-145)
--- NOTE | 2018-04-05 07:53 | PN ---
Progress Note, Physician Chief Complaint: C/O B/L groin rash History of Present Illness: 17 year old male with PMHx of left-sided spontaneous pneumothorax in 2016 and was transferred and treated at [facility] ([facility]). He then developed a second spontaneous pneumothomax on the left lung 2017 and again treated at [facility]. He presented to the ED on 03/28/18 for 1 day c/o of abdominal pain with associated nausea vomiting. He was found to have acute appendicitis s/p lap appendectomy for gangrenous appendix. - Current Medication List Current Medications: Active Medications Benzocaine/Menthol (Cepacol Lozenge -) 1 each MM PRN PRN PRN Reason: SORE THROAT Last Admin: 04/03/18 23:43 Dose: 1 each Diphenhydramine HCl (Benadryl Injection -) 12.5 mg IVPUSH Q4H PRN PRN Reason: For Itching or insomnia Last Admin: 04/03/18 23:46 Dose: 12.5 mg Enoxaparin Sodium (Lovenox -) 40 mg SQ DAILY [facility] Famotidine/Sodium Chloride (Pepcid 20 Mg Premixed Ivpb -) 20 mg in 50 mls @ 100 mls/hr IVPB BID [facility] Last Admin: 04/04/18 22:09 Dose: 100 mls/hr Sodium Chloride (Normal Saline -) 1,000 mls @ 100 mls/hr IV ASDIR [facility] Last Admin: 04/05/18 06:00 Dose: 100 mls/hr Ketorolac Tromethamine (Toradol Injection -) 30 mg IVPUSH Q8H PRN PRN Reason: PAIN LEVEL 1-5 Stop: 04/08/18 14:42 Last Admin: 04/03/18 14:58 Dose: 30 mg Lorazepam (Ativan Injection -) 0.5 mg IVPUSH Q6H PRN PRN Reason: ANXIETY Last Admin: 04/03/18 15:52 Dose: 0.5 mg Morphine Sulfate (Morphine Sulfate) 1 mg IVPUSH Q4H PRN PRN Reason: PAIN LEVEL 7 - 10 Last Admin: 04/03/18 23:43 Dose: 1 mg Prochlorperazine Edisylate (Compazine Injection -) 10 mg IVPB Q4H PRN PRN Reason: NAUSEA AND/OR VOMITING Last Admin: 04/01/18 07:17 Dose: 10 mg - Objective Vital Signs: Vital Signs Temperature 98.2 F 04/05/18 06:00 Pulse Rate 68 04/05/18 06:00 Respiratory Rate 20 04/04/18 22:00 Blood Pressure 110/60 04/05/18 06:00 O2 Sat by Pulse Oximetry (%) 97 04/04/18 21:00 Constitutional: Yes: Well Nourished, No Distress, Calm Eyes: Yes: WNL, Conjunctiva Clear, EOM Intact HENT: Yes: Atraumatic, Normocephalic Neck: Yes: Supple, Trachea Midline. No: Decreased ROM, Lymphadenopathy Cardiovascular: Yes: Regular Rate and Rhythm, S1, S2. No: JVD, Murmur Respiratory: Yes: Regular, CTA Bilaterally Gastrointestinal: Yes: Normal Bowel Sounds, Other (S/P LAP appendectomy b/l lower abd rsh and erythema round bandage) Extremities: No: Calf Tenderness Edema: No Peripheral Pulses: Left Doralis Pedis: 2+, Right Dorsalis Pedis: 2+ Wound/Incision: Yes: Well Approximated, Sutures Intact Neurological: Yes: Alert, Oriented ...Motor Strength: WNL, LUE, LLE, RUE, RLE Labs: CBC, BMP 04/04/18 07:00 04/05/18 06:10 INR, PTT INR 1.49 (0.82-1.09) H 03/28/18 14:48 Problem List - Problems (1) Sepsis Assessment/Plan: Due to perforated infected appendics improving on current abx , culture grew Polymicrobial culture will f/u Code(s): A41.9 - SEPSIS, UNSPECIFIED ORGANISM Qualifiers: Sepsis type: sepsis due to unspecified organism Qualified Code(s): A41.9 - Sepsis, unspecified organism (2) Appendicitis Code(s): K37 - UNSPECIFIED APPENDICITIS Qualifiers: Appendicitis type: acute appendicitis Acute appendicitis type: other Qualified Code(s): K35.890 - Other acute appendicitis without perforation or gangrene; K35.89 - Other acute appendicitis (3) Spontaneous pneumothorax Assessment/Plan: No active issue Code(s): J93.83 - OTHER PNEUMOTHORAX (4) Rash Assessment/Plan: no systemic symptoms cont Bendryl PRN and observe Code(s): R21 - RASH AND OTHER NONSPECIFIC SKIN ERUPTION
[2018-04-05] MEDS ORDERED: HYDROCORTISONE 1% TOPICAL LOTION 118 ML BOTTLE TP PRN (08:33)
--- NOTE | 2018-04-05 08:39 | PN ---
Progress Note (short form) - Note Progress Note: POD 8, s/p laparoscopic appendectomy now with ileus Pt seen and examined. States he is feeling slightly better in regards to his abdominal distention/discomfort this morning. Reports intense pruritus and a rash on his abdomen which began overnight. Remains NPO, NGT in place. Has been oob ambulating halls without issue. No flatus. Denies cp/sob, n/v/d, calf pain or edema. Vital Signs Temp 98.2 F 04/05/18 06:00 Pulse 68 04/05/18 06:00 Resp 20 04/04/18 22:00 BP 110/60 04/05/18 06:00 Pulse Ox 97 04/04/18 21:00 Intake & Output 04/04/18 04/04/18 04/05/18 11:59 23:59 11:59 Intake Total 1200 1200 1200 Output Total 0 0 Balance 1200 1200 1200 Intake: IV 1100 1200 1200 Normal Saline - 1,000 ml 1100 1200 1200 @ 100 mls/hr IV ASDIR JESU Rx#:[id number] IVPB 100 Oral 0 0 Output: Gastric Drainage 0 0 Other: Voiding Method Urinal Toilet # Unmeasured Voids Void 0 1 Bowel Movement No No CBC, BMP 04/04/18 07:00 04/05/18 06:10 Gen: awake, alert, nad. Resp: cta b/l anteriorly CV: rrr, s1s2 Abdo: R side of abdomen with multiple macules. +erythema around steri-strips, no drainage expressed. Slightly distended, soft, ttp LLQ. Hypoactive bowel sounds. A/P: 17 y/o M w/ PMHx spontaneous pneumothorax admitted 03/28 with abdominal pain , found to have acute appendicitis, now POD 8, s/p laparoscopic appendectomy, c/ b ileus. Afebrile, VSS. Labs pending. No flatus, no BM. -CT abdo/pelvis w/ contrast ordered for this AM -Remain NPO , NGT, IVF -OOB/ambulate -Full labs -Will recheck pt later this afternoon pt d/w attending Dr Woo
--- NOTE | 2018-04-05 09:53 | PN ---
Progress Note (short form) - Note Progress Note: Attending Surgeon POD #8 He states he passed flatus x 2 last PM; none this AM; o/w no c/o. VSS AF abdo-soft; flat and non tender; dull to percussion; rash on abdomen and flanks; port sites c/d/i and healing well rectal-GST; no mass; no stool extrems-warm; calves soft and non tender WBC-nl IMP: s/p lap appy for perforated appendicitis and prolonged post op ileus PLAN: NPO/NGT/IVF/CT scan a/p. Jerald Woo MD FAC
[2018-04-05] MEDS: ENOXAPARIN NA (PORCINE) 40 MG/0.4 ML DISP.SYRIN SQ SCH (10:00)
[2018-04-05] MEDS: FAMOTIDINE 20 MG/50 ML IVPB 20 MG/50 ML MG IVPB SCH ×2 (10:00→22:11)
[2018-04-05 10:31] LABS: INR 1.51 (0.83-1.09); PROTHROMBIN TIME (PATIENT) 17.9 SEC (9.7-13.0)
--- NOTE | 2018-04-05 13:12 | PN ---
Progress Note, Physician - Current Medication List Current Medications: Active Medications Benzocaine/Menthol (Cepacol Lozenge -) 1 each MM PRN PRN PRN Reason: SORE THROAT Last Admin: 04/03/18 23:43 Dose: 1 each Diphenhydramine HCl (Benadryl Injection -) 12.5 mg IVPUSH Q4H PRN PRN Reason: For Itching or insomnia Last Admin: 04/05/18 10:01 Dose: 12.5 mg Enoxaparin Sodium (Lovenox -) 40 mg SQ DAILY [facility] Last Admin: 04/05/18 10:00 Dose: 40 mg Hydrocortisone (Hytone 1% Lotion -) 1 applic TP BID PRN PRN Reason: FOR ITCHING Last Admin: 04/05/18 10:44 Dose: 1 applic Famotidine/Sodium Chloride (Pepcid 20 Mg Premixed Ivpb -) 20 mg in 50 mls @ 100 mls/hr IVPB BID [facility] Last Admin: 04/05/18 10:00 Dose: 100 mls/hr Sodium Chloride (Normal Saline -) 1,000 mls @ 100 mls/hr IV ASDIR [facility] Last Admin: 04/05/18 06:00 Dose: 100 mls/hr Ketorolac Tromethamine (Toradol Injection -) 30 mg IVPUSH Q8H PRN PRN Reason: PAIN LEVEL 1-5 Stop: 04/08/18 14:42 Last Admin: 04/03/18 14:58 Dose: 30 mg Lorazepam (Ativan Injection -) 0.5 mg IVPUSH Q6H PRN PRN Reason: ANXIETY Last Admin: 04/03/18 15:52 Dose: 0.5 mg Morphine Sulfate (Morphine Sulfate) 1 mg IVPUSH Q4H PRN PRN Reason: PAIN LEVEL 7 - 10 Last Admin: 04/03/18 23:43 Dose: 1 mg Prochlorperazine Edisylate (Compazine Injection -) 10 mg IVPB Q4H PRN PRN Reason: NAUSEA AND/OR VOMITING Last Admin: 04/01/18 07:17 Dose: 10 mg - Objective Vital Signs: Vital Signs Temperature 97.6 F 04/05/18 09:00 Pulse Rate 80 04/05/18 09:00 Respiratory Rate 18 04/05/18 09:00 Blood Pressure 120/62 04/05/18 09:00 O2 Sat by Pulse Oximetry (%) 97 04/04/18 21:00 Labs: CBC, BMP 04/04/18 07:00 04/05/18 06:10 INR, PTT INR 1.51 (0.83-1.09) H 04/05/18 09:55
[2018-04-05 15:58] VITALS: BMI 25.4
[2018-04-06] MEDS: SODIUM CHLORIDE 1,000 ML IV SCH ×3 (06:48→21:27)
--- NOTE | 2018-04-06 08:08 | PN ---
Progress Note, Physician History of Present Illness: 17 year old male with PMHx of left-sided spontaneous pneumothorax in 2016 and was transferred and treated at [facility] ([facility]). He then developed a second spontaneous pneumothomax on the left lung 2017 and again treated at [facility]. He presented to the ED on 03/28/18 for 1 day c/o of abdominal pain with associated nausea vomiting. He was found to have acute appendicitis s/p lap appendectomy for gangrenous appendix. - Current Medication List Current Medications: Active Medications Benzocaine/Menthol (Cepacol Lozenge -) 1 each MM PRN PRN PRN Reason: SORE THROAT Last Admin: 04/03/18 23:43 Dose: 1 each Diphenhydramine HCl (Benadryl Injection -) 12.5 mg IVPUSH Q4H PRN PRN Reason: For Itching or insomnia Last Admin: 04/05/18 10:01 Dose: 12.5 mg Enoxaparin Sodium (Lovenox -) 40 mg SQ DAILY [facility] Last Admin: 04/05/18 10:00 Dose: 40 mg Hydrocortisone (Hytone 1% Lotion -) 1 applic TP BID PRN PRN Reason: FOR ITCHING Last Admin: 04/05/18 10:44 Dose: 1 applic Famotidine/Sodium Chloride (Pepcid 20 Mg Premixed Ivpb -) 20 mg in 50 mls @ 100 mls/hr IVPB BID [facility] Last Admin: 04/05/18 22:11 Dose: Not Given Sodium Chloride (Normal Saline -) 1,000 mls @ 100 mls/hr IV ASDIR [facility] Last Admin: 04/06/18 06:48 Dose: 100 mls/hr Ketorolac Tromethamine (Toradol Injection -) 30 mg IVPUSH Q8H PRN PRN Reason: PAIN LEVEL 1-5 Stop: 04/08/18 14:42 Last Admin: 04/03/18 14:58 Dose: 30 mg Lorazepam (Ativan Injection -) 0.5 mg IVPUSH Q6H PRN PRN Reason: ANXIETY Last Admin: 04/03/18 15:52 Dose: 0.5 mg Prochlorperazine Edisylate (Compazine Injection -) 10 mg IVPB Q4H PRN PRN Reason: NAUSEA AND/OR VOMITING Last Admin: 04/01/18 07:17 Dose: 10 mg - Objective Vital Signs: Vital Signs Temperature 98.3 F 04/06/18 06:59 Pulse Rate 71 04/06/18 06:59 Respiratory Rate 20 04/06/18 06:59 Blood Pressure 110/60 04/06/18 06:59 O2 Sat by Pulse Oximetry (%) 99 04/05/18 21:00 Constitutional: Yes: Well Nourished, No Distress, Calm Eyes: Yes: WNL, Conjunctiva Clear, EOM Intact HENT: Yes: Atraumatic, Normocephalic Neck: Yes: Supple, Trachea Midline. No: Decreased ROM, Lymphadenopathy Cardiovascular: Yes: Regular Rate and Rhythm, S1, S2. No: JVD, Murmur Respiratory: Yes: Regular, CTA Bilaterally Gastrointestinal: Yes: Normal Bowel Sounds, Other (S/P LAP appendectomy b/l lower abd rsh and erythema round bandage) Extremities: No: Calf Tenderness Edema: No Peripheral Pulses: Left Doralis Pedis: 2+, Right Dorsalis Pedis: 2+ Wound/Incision: Yes: Well Approximated, Sutures Intact Neurological: Yes: Alert, Oriented ...Motor Strength: WNL, LUE, LLE, RUE, RLE Labs: CBC, BMP 04/04/18 07:00 04/05/18 06:10 INR, PTT INR 1.51 (0.83-1.09) H 04/05/18 09:55 - ....Imaging Cat Scan: Report Reviewed (Improving SBO, still ileus) Problem List - Problems (1) Sepsis Assessment/Plan: Due to perforated infected appendics improving on current abx , culture grew Polymicrobial culture will f/u sensitivity Code(s): A41.9 - SEPSIS, UNSPECIFIED ORGANISM Qualifiers: Sepsis type: sepsis due to unspecified organism Qualified Code(s): A41.9 - Sepsis, unspecified organism (2) Appendicitis Assessment/Plan: Cont IV abx s/p appendectomy Code(s): K37 - UNSPECIFIED APPENDICITIS Qualifiers: Appendicitis type: acute appendicitis Acute appendicitis type: other Qualified Code(s): K35.890 - Other acute appendicitis without perforation or gangrene; K35.89 - Other acute appendicitis (3) Spontaneous pneumothorax Assessment/Plan: No active issue Code(s): J93.83 - OTHER PNEUMOTHORAX (4) Rash Assessment/Plan: no systemic symptoms cont Bendryl PRN and observe Code(s): R21 - RASH AND OTHER NONSPECIFIC SKIN ERUPTION (5) SBO (small bowel obstruction) Assessment/Plan: Due to Ieus NG tube removed denies any distention passing flatus, NPO improving. Code(s): K56.609 - UNSP INTESTNL OBST, UNSP TO PARTIAL VERSUS COMPLETE OBST
[2018-04-06 09:26] LABS: BASO % 0.4 % (0-2.0); EOS % 3.9 % (0-4.5); LYMPH % 8.4 % (8-40); MCH 30.6 pg (25.7-33.7); MCHC 34.3 g/dl (32.0-35.9); MEAN CELL VOLUME 89.2 fl (80-96); MEAN PLT VOLUME 7.4 fl (7.5-11.1); MONO % 7.6 % (3.8-10.2); NEUT % 79.7 % (42.8-82.8); PLATELET COUNT 313 K/MM3 (134-434); RBC 4.26 M/mm3 (4.00-5.60); RDW 13.2 % (11.9-15.9); WHITE BLOOD COUNT 8.2 K/mm3 (4.0-10.0)
[2018-04-06] MEDS: ENOXAPARIN NA (PORCINE) 40 MG/0.4 ML DISP.SYRIN SQ SCH (09:44)
[2018-04-06] MEDS: FAMOTIDINE 20 MG/50 ML IVPB 20 MG/50 ML MG IVPB SCH ×2 (09:45→21:26)
[2018-04-06 10:09] LABS: ANION GAP 16 MMOL/L (8-16); BLOOD UREA NITROGEN 9 mg/dL (7-18); CALCIUM 8.6 mg/dL (8.5-10.1); CHLORIDE 101 mmol/L (98-107); CO2 20 mmol/L (21-32); CREATININE 0.8 mg/dL (0.55-1.3); GLUCOSE,RANDOM 61 mg/dL (74-106); POTASSIUM 4.2 mmol/L (3.5-5.1); SODIUM 137 mmol/L (136-145)
--- NOTE | 2018-04-06 10:54 | PN ---
Progress Note (short form) - Note Progress Note: Attending Surgeon POD#9 No c/o; no flatus VSS AF abdo-soft; minimally tympanitis; non tender; rash now localized to port sites only WBC-nl CTa/p-partial sbo IMP: post op partial SBO PLAN: NGT removed; OOB; continue same; AXR tomorrow; reviewed films and report of CT a/p w/both parents last night. Jerald Woo MD FACS
[2018-04-06] MEDS ORDERED: PT OWN MED DRAWER 7, Y5N ONE (13:05)
[2018-04-06 14:00] LABS: ANISOCYTOSIS 0; MACROCYTOSIS 0; PLATELET ESTIMATE NORMAL
--- NOTE | 2018-04-06 15:50 | PN ---
Progress Note, Physician History of Present Illness: Pt seen and examined. Events noted. Still has not had a BM. He denies any pain. Rash on torso noted. - Current Medication List Current Medications: Active Medications Benzocaine/Menthol (Cepacol Lozenge -) 1 each MM PRN PRN PRN Reason: SORE THROAT Last Admin: 04/03/18 23:43 Dose: 1 each Diphenhydramine HCl (Benadryl Injection -) 12.5 mg IVPUSH Q4H PRN PRN Reason: For Itching or insomnia Last Admin: 04/05/18 10:01 Dose: 12.5 mg Enoxaparin Sodium (Lovenox -) 40 mg SQ DAILY [facility] Last Admin: 04/06/18 09:44 Dose: 40 mg Hydrocortisone (Hytone 1% Lotion -) 1 applic TP BID PRN PRN Reason: FOR ITCHING Last Admin: 04/05/18 10:44 Dose: 1 applic Famotidine/Sodium Chloride (Pepcid 20 Mg Premixed Ivpb -) 20 mg in 50 mls @ 100 mls/hr IVPB BID [facility] Last Admin: 04/06/18 09:45 Dose: Not Given Sodium Chloride (Normal Saline -) 1,000 mls @ 100 mls/hr IV ASDIR [facility] Last Admin: 04/06/18 12:55 Dose: 100 mls/hr Ketorolac Tromethamine (Toradol Injection -) 30 mg IVPUSH Q8H PRN PRN Reason: PAIN LEVEL 1-5 Stop: 04/08/18 14:42 Last Admin: 04/03/18 14:58 Dose: 30 mg Lorazepam (Ativan Injection -) 0.5 mg IVPUSH Q6H PRN PRN Reason: ANXIETY Last Admin: 04/03/18 15:52 Dose: 0.5 mg Prochlorperazine Edisylate (Compazine Injection -) 10 mg IVPB Q4H PRN PRN Reason: NAUSEA AND/OR VOMITING Last Admin: 04/01/18 07:17 Dose: 10 mg - Objective Vital Signs: Vital Signs Temperature 98.3 F 04/06/18 14:29 Pulse Rate 92 H 04/06/18 14:29 Respiratory Rate 18 04/06/18 08:44 Blood Pressure 121/70 04/06/18 14:29 O2 Sat by Pulse Oximetry (%) 96 04/06/18 09:00 Constitutional: Yes: No Distress Cardiovascular: Yes: Regular Rate and Rhythm Respiratory: Yes: Regular Gastrointestinal: Yes: Soft, Hyperactive Bowel Sounds Genitourinary: Yes: WNL Extremities: Yes: WNL Integumentary: Yes: Rash (maculopapular rash on torso) Wound/Incision: Yes: Clean/Dry Neurological: Yes: Alert Labs: CBC, BMP 04/06/18 07:45 04/06/18 07:45 INR, PTT INR 1.51 (0.83-1.09) H 04/05/18 09:55 - ....Imaging X-ray: Report Reviewed Problem List - Problems (1) Appendicitis Code(s): K37 - UNSPECIFIED APPENDICITIS Qualifiers: Appendicitis type: acute appendicitis Acute appendicitis type: other Qualified Code(s): K35.890 - Other acute appendicitis without perforation or gangrene; K35.89 - Other acute appendicitis (2) Rash Code(s): R21 - RASH AND OTHER NONSPECIFIC SKIN ERUPTION (3) SBO (small bowel obstruction) Code(s): K56.609 - UNSP INTESTNL OBST, UNSP TO PARTIAL VERSUS COMPLETE OBST (4) Spontaneous pneumothorax Code(s): J93.83 - OTHER PNEUMOTHORAX Assessment/Plan Acute appendicitis with perforation s/p lap appendectomy Partial SBO Leukocytosis Rash -- labs/imaging noted -- antibiotics held due to rash, will consider switch -- leukocytosis resolved, patient afebrile -- surgery following will follow up
[2018-04-07 07:36] LABS: BASO % 0.3 % (0-2.0); EOS % 4.3 % (0-4.5); HEMATOCRIT 38.2 % (35.4-49); HEMOGLOBIN 13.2 GM/dL (11.7-16.9); LYMPH % 16.7 % (8-40); MCH 30.8 pg (25.7-33.7); MCHC 34.4 g/dl (32.0-35.9); MEAN CELL VOLUME 89.6 fl (80-96); MEAN PLT VOLUME 7.5 fl (7.5-11.1); MONO % 8.3 % (3.8-10.2); NEUT % 70.4 % (42.8-82.8); PLATELET COUNT 304 K/MM3 (134-434); RBC 4.27 M/mm3 (4.00-5.60); RDW 13.5 % (11.9-15.9); WHITE BLOOD COUNT 7.9 K/mm3 (4.0-10.0)
[2018-04-07 08:00] LABS: ANION GAP 10 MMOL/L (8-16); BLOOD UREA NITROGEN 9 mg/dL (7-18); CALCIUM 8.2 mg/dL (8.5-10.1); CHLORIDE 104 mmol/L (98-107); CO2 25 mmol/L (21-32); CREATININE 0.7 mg/dL (0.55-1.3); GLUCOSE,RANDOM 73 mg/dL (74-106); SODIUM 139 mmol/L (136-145)
[2018-04-07 08:47] VITALS: BP 98/39; PULSE 53; TEMP 98
[2018-04-07] MEDS: FAMOTIDINE 20 MG/50 ML IVPB 20 MG/50 ML MG IVPB SCH (09:21)
[2018-04-07] MEDS: ENOXAPARIN NA (PORCINE) 40 MG/0.4 ML DISP.SYRIN SQ SCH (09:21)
--- NOTE | 2018-04-07 10:22 | PN ---
Progress Note, Physician Chief Complaint: Comfortable tolerating PO had a BM lst night no c/o nausea, vomiting abd pain History of Present Illness: 17 year old male with PMHx of left-sided spontaneous pneumothorax in 2015 and was transferred and treated at [facility] ([facility] He then developed a second spontaneous pneumothomax on the left lung 2016 and again treated at [facility]. He presented to the ED on 03/28/18 for 1 day c/o of abdominal pain with associated nausea vomiting. He was found to have acute appendicitis s/p lap appendectomy for gangrenous appendix. - Current Medication List Current Medications: Active Medications Benzocaine/Menthol (Cepacol Lozenge -) 1 each MM PRN PRN PRN Reason: SORE THROAT Last Admin: 04/03/18 23:43 Dose: 1 each Diphenhydramine HCl (Benadryl Injection -) 12.5 mg IVPUSH Q4H PRN PRN Reason: For Itching or insomnia Last Admin: 04/06/18 21:27 Dose: 12.5 mg Enoxaparin Sodium (Lovenox -) 40 mg SQ DAILY [facility] Last Admin: 04/07/18 09:21 Dose: Not Given Hydrocortisone (Hytone 1% Lotion -) 1 applic TP BID PRN PRN Reason: FOR ITCHING Last Admin: 04/05/18 10:44 Dose: 1 applic Famotidine/Sodium Chloride (Pepcid 20 Mg Premixed Ivpb -) 20 mg in 50 mls @ 100 mls/hr IVPB BID [facility] Last Admin: 04/07/18 09:21 Dose: Not Given Sodium Chloride (Normal Saline -) 1,000 mls @ 100 mls/hr IV ASDIR [facility] Last Admin: 04/06/18 21:27 Dose: 100 mls/hr Ketorolac Tromethamine (Toradol Injection -) 30 mg IVPUSH Q8H PRN PRN Reason: PAIN LEVEL 1-5 Stop: 04/08/18 14:42 Last Admin: 04/03/18 14:58 Dose: 30 mg Prochlorperazine Edisylate (Compazine Injection -) 10 mg IVPB Q4H PRN PRN Reason: NAUSEA AND/OR VOMITING Last Admin: 04/01/18 07:17 Dose: 10 mg - Objective Vital Signs: Vital Signs Temperature 98.0 F 04/07/18 08:46 Pulse Rate 53 L 04/07/18 08:46 Respiratory Rate 16 04/07/18 08:46 Blood Pressure 98/39 L 04/07/18 08:46 O2 Sat by Pulse Oximetry (%) 98 04/06/18 21:00 Constitutional: Yes: Well Nourished, No Distress, Calm HEENT: Yes: WNL, Conjunctiva Clear, EOM Intact HENT: Yes: Atraumatic, Normocephalic Neck: Yes: Supple, Trachea Midline. No: Decreased ROM, Lymphadenopathy Cardiovascular: Yes: Regular Rate and Rhythm, S1, S2. No: JVD, Murmur Respiratory: Yes: Regular, CTA Bilaterally Gastrointestinal: Yes: Normal Bowel Sounds, Other (S/P LAP appendectomy b/l lower abd rsh and erythema round bandage) Extremities: No: Calf Tenderness, Edema: No Peripheral Pulses: Left Doralis Pedis: 2+, Right Dorsalis Pedis: 2+ Wound/Incision: Yes: Well Approximated, Sutures Intact Neurological: Yes: Alert, Oriented, Motor Strength: WNL, LUE, LLE, RUE, RLE Labs: CBC, BMP 04/07/18 07:00 04/07/18 07:00 INR, PTT INR 1.51 (0.83-1.09) H 04/05/18 09:55 Problem List - Problems (1) Sepsis Assessment/Plan: Resolved now off abx Code(s): A41.9 - SEPSIS, UNSPECIFIED ORGANISM Qualifiers: Sepsis type: sepsis due to unspecified organism Qualified Code(s): A41.9 - Sepsis, unspecified organism (2) Appendicitis Assessment/Plan: improving tolerating PO will advance after discussing with GI Code(s): K37 - UNSPECIFIED APPENDICITIS Qualifiers: Appendicitis type: acute appendicitis Acute appendicitis type: other Qualified Code(s): K35.890 - Other acute appendicitis without perforation or gangrene; K35.89 - Other acute appendicitis (3) Spontaneous pneumothorax Assessment/Plan: No active issue Code(s): J93.83 - OTHER PNEUMOTHORAX (4) Rash Assessment/Plan: no systemic symptoms cont Bendryl PRN and observe Code(s): R21 - RASH AND OTHER NONSPECIFIC SKIN ERUPTION (5) SBO (small bowel obstruction) Assessment/Plan: Due to Ieus NG tube removed denies any distention passing flatus, NPO improving. Code(s): K56.609 - UNSP INTESTNL OBST, UNSP TO PARTIAL VERSUS COMPLETE OBST
--- NOTE | 2018-04-07 12:42 | PN ---
Progress Note (short form) - Note Progress Note: Attending Surgeon POD #10 No c/o; had massive amounts of flatus and stool; tolerating liquid diet VSS AF abdo-soft; rash resolving; non tender WBC-nl IMP: improved PLAN: regular diet and if tolerated d/c home to office f/u next week. Jerald Woo MD FACS
--- NOTE | 2018-04-07 13:32 | DS ---
"Physical Examination Vital Signs: Vital Signs Temperature 98.0 F 04/07/18 08:46 Pulse Rate 53 L 04/07/18 08:46 Respiratory Rate 16 04/07/18 08:46 Blood Pressure 98/39 L 04/07/18 08:46 O2 Sat by Pulse Oximetry (%) 98 04/07/18 09:00 Constitutional: Yes: Well Nourished, No Distress, Calm Eyes: Yes: WNL, Conjunctiva Clear, EOM Intact HENT: Yes: Atraumatic, Normocephalic Neck: Yes: Supple, Trachea Midline. No: Decreased ROM, Lymphadenopathy Cardiovascular: Yes: Regular Rate and Rhythm, S1, S2. No: JVD, Murmur Respiratory: Yes: Regular, CTA Bilaterally Gastrointestinal: Yes: Normal Bowel Sounds, Other (S/P LAP appendectomy b/l lower abd rsh and erythema round bandage) Extremities: No: Calf Tenderness Edema: No Peripheral Pulses: Left Doralis Pedis: 2+, Right Dorsalis Pedis: 2+ Wound/Incision: Yes: Well Approximated, Sutures Intact Neurological: Yes: Alert, Oriented, Motor Strength: WNL, LUE, LLE, RUE, RLE Labs: CBC, BMP 04/07/18 07:00 04/07/18 07:00 Discharge Summary Reason For Visit: APPENDICITS Current Active Problems Appendicitis (Acute) Rash (Acute) SBO (small bowel obstruction) (Acute) Sepsis (Acute) Hospital Course: 17 year old male with PMHx of left-sided spontaneous pneumothorax in 2015 and was transferred and treated at [facility] ([facility] He then developed a second spontaneous pneumothomax on the left lung 2016 and again treated at [facility]. He presented to the ED on 03/28/18 for 1 day c/o of abdominal pain with associated nausea vomiting. He was found to have acute appendicitis s/p lap appendectomy for gangrenous appendix. reciveed IV Zosyn DC after 4 days due to rash remained afebarile TWBC normal off abx 3 days. Cleared y surgery to Dc Home. Time spent 30 minutes Condition: Stable - Instructions Diet, Activity, Other Instructions: Dr. Woo Discharge Instructions Post Operative Instructions Physical activity Resume your normal everyday activity as tolerated no heavy lifting or exercise until seen by your surgeon. You may walk unlimited amounts of and climb stairs. You may resume driving the car when you feel safe and comfortable behind the wheel. Wound care If you have a bandage, leave it on, and keep dry for 48 - 72 hours. After that time discard the outer bandage. If there are tapes on the skin under the outer bandage, leave them in place. They will peel off in the next 7 to 10 days. Do Not peel them off. You may shower 2 days after surgery. If there are tapes present on the skin, they can get wet. Diet There are no dietary restrictions. Eat healthy, high-fiber foods. Drink 6 to 8 glasses of liquid each day. This will assist in keeping your bowels are regular. Pain management You may take Tylenol or acetaminophen or Ibuprofen (for example, Motrin, Advil etc.) Any pain prescription medication ordered should be taken as prescribed for moderate to severe pain. [place] X[place]CH Checked prior too escribe of narcotics for pain management. This report was requested by: Michael Rebollar | Reference #: [id number] Call Dr. Woo for any of the following: Severe pain not relieved by medication Fever of 101 or higher Excessive bleeding or drainage on dressing Inability to urinate Call the office at [phone] for a post operative appointment in 7 - 10 days. Referrals: Jerald Woo MD [Staff Physician] - Dony Christie MD [Primary Care Provider] - 1 Week Disposition: HOME - Home Medications Comprehensive Discharge Medication List: Ambulatory Orders Acetaminophen [Tylenol] 650 mg PO Q6H #30 capsule MDD 4 04/07/18 Famotidine 20 mg PO BID 7 Days tablet MDD two 04/07/18"
--- NOTE | 2018-04-07 14:21 | PN ---
Progress Note, Physician History of Present Illness: Follow up note: Pt was noted to have BMs/no abd pain, tolerating food intake. Was d/c home. D/W PMD, suggest Clindamycin po x 7 days, order to be sent to pharmacy, contact patient - Current Medication List Current Medications: Active Medications Benzocaine/Menthol (Cepacol Lozenge -) 1 each MM PRN PRN PRN Reason: SORE THROAT Last Admin: 04/03/18 23:43 Dose: 1 each Diphenhydramine HCl (Benadryl Injection -) 12.5 mg IVPUSH Q4H PRN PRN Reason: For Itching or insomnia Last Admin: 04/06/18 21:27 Dose: 12.5 mg Enoxaparin Sodium (Lovenox -) 40 mg SQ DAILY [facility] Last Admin: 04/07/18 09:21 Dose: Not Given Hydrocortisone (Hytone 1% Lotion -) 1 applic TP BID PRN PRN Reason: FOR ITCHING Last Admin: 04/05/18 10:44 Dose: 1 applic Famotidine/Sodium Chloride (Pepcid 20 Mg Premixed Ivpb -) 20 mg in 50 mls @ 100 mls/hr IVPB BID [facility] Last Admin: 04/07/18 09:21 Dose: Not Given Sodium Chloride (Normal Saline -) 1,000 mls @ 100 mls/hr IV ASDIR [facility] Last Admin: 04/06/18 21:27 Dose: 100 mls/hr Ketorolac Tromethamine (Toradol Injection -) 30 mg IVPUSH Q8H PRN PRN Reason: PAIN LEVEL 1-5 Stop: 04/08/18 14:42 Last Admin: 04/03/18 14:58 Dose: 30 mg Prochlorperazine Edisylate (Compazine Injection -) 10 mg IVPB Q4H PRN PRN Reason: NAUSEA AND/OR VOMITING Last Admin: 04/01/18 07:17 Dose: 10 mg - Objective Vital Signs: Vital Signs Temperature 98.0 F 04/07/18 08:46 Pulse Rate 53 L 04/07/18 08:46 Respiratory Rate 16 04/07/18 08:46 Blood Pressure 98/39 L 04/07/18 08:46 O2 Sat by Pulse Oximetry (%) 98 04/07/18 09:00 Labs: CBC, BMP 04/07/18 07:00 04/07/18 07:00 INR, PTT INR 1.51 (0.83-1.09) H 04/05/18 09:55 Problem List - Problems (1) Appendicitis Code(s): K37 - UNSPECIFIED APPENDICITIS Qualifiers: Appendicitis type: acute appendicitis Acute appendicitis type: other Qualified Code(s): K35.890 - Other acute appendicitis without perforation or gangrene; K35.89 - Other acute appendicitis (2) Rash Code(s): R21 - RASH AND OTHER NONSPECIFIC SKIN ERUPTION (3) SBO (small bowel obstruction) Code(s): K56.609 - UNSP INTESTNL OBST, UNSP TO PARTIAL VERSUS COMPLETE OBST (4) Spontaneous pneumothorax Code(s): J93.83 - OTHER PNEUMOTHORAX
[2018-04-07] MEDS ORDERED: CLINDAMYCIN HCL 150 MG CAPSULE (FP) PO SCH (22:00)
== END 2018-04-07 14:36 | disposition home or self-care (01) | DRG 339 ==
LOC: FER 14:38 → SUATTDRO 18:37 → JASUSAT 18:37 → J6S 18:38 → JASUSAT 18:39 → J6S 18:39
PROVIDERS: ADMIT Internal Medicine; ATTEND Internal Medicine
PROC: 0DTJ4ZZ Resection of Appendix, Percutaneous Endoscopic Approach (ICD-10-PCS; principal; 2018-03-28 18:00)
DX: K35.32 Acute appendicitis with perforation, localized peritonitis, and gangrene, without abscess (principal); K56.609 Unspecified intestinal obstruction, unspecified as to partial versus complete obstruction; J93.83 Other pneumothorax; K56.7 Ileus, unspecified; K91.89 Other postprocedural complications and disorders of digestive system; E87.2 Acidosis; R21 Rash and other nonspecific skin eruption; D72.829 Elevated white blood cell count, unspecified; R11.2 Nausea with vomiting, unspecified; Y83.9 Surgical procedure, unspecified as the cause of abnormal reaction of the patient, or of later complication, without mention of misadventure at the time of the procedure
CPT/HCPCS: 36415; 74019-TC-FY; 74021-TC-FY; 74177-TC; 76870-TC; 80048; 80053; 81003; 83605; 83690; 83735; 85025; 85610; 86850; 86900; 86901; 87040; 87070; 87075; 87076; 87077; 87205; 88304-TC; 94760; 99284-25; J0131; J1644; J7030; Q9967

== ENCOUNTER 2019-03-04 18:06 | Emergency (ER) | payer BC ==
--- NOTE | 2019-03-04 18:14 | PDOC ---
History of Present Illness - General Chief Complaint: Pain Stated Complaint: LEFT LOWER CHEST PAIN FOR 6 HRS H/O SPONT PNEUMO Time Seen by Provider: 03/04/19 18:14 - History of Present Illness Initial Comments: 03/06/19 07:15 Chief complaint: Pleuritic chest pain HPI: Pleuritic left anterior chest pain today. History of spontaneous pneumothorax x2 in the past, however stable for several years. Review of systems: Denies fever/chills, recent URI, sore throat, cough, shortness of breath, abdominal pain, nausea, vomiting, diarrhea. Remainder of systems reviewed and negative Past medical history: Recurrent spontaneous pneumothorax, no other significant medical problems Social history: Partakes in strenuous weightlifting but has noted no recent injury. No tobacco alcohol or drugs Family history: Reviewed and noncontributory Physical exam alert and oriented well-developed well-nourished no acute distress cooperative. No signs of respiratory distress. No tachypnea or dyspnea is evident Afebrile, vital signs normal including respiratory rate and oxygen saturation HEENT normal Neck supple without bruit mass or nodes Chest clear to P&A. Full breath sounds bilaterally. No dullness or hyperresonance to percussion. No wheezes rales or rhonchi There is mild tenderness over the left parasternal cartilages, mid chest. No deformity or tenderness of the rib cage. No crepitus. CV S1-S2 normal without murmur rub or gallop pulses full and symmetric no JVD or edema no bruits Abdomen benign Neurological intact Extremities no CCE Skin clear, no rash, adequate turgor and wet mucous membranes Impression: Most likely musculoskeletal pain, induced by vigorous weight lifting. Rule out recurrent pneumothorax Plan: X-ray clear. Symptomatic treatment for musculoskeletal pain and follow- up if symptoms worsen or additional symptoms develop. In no pain or other distress at discharge with mother to follow-up as directed. Past History - Past Medical History Allergies/Adverse Reactions: Allergies Allergy/AdvReac Type Severity Reaction Status Date / Time cat dander Allergy Verified 03/04/19 18:08 dog dander Allergy Verified 03/04/19 18:08 BLOOD THINNERS Allergy Intermediate Rash Uncoded 03/04/19 18:09 Home Medications: Ambulatory Orders Albuterol Sulfate [Albuterol Sulfate Hfa] 2 inh IH DAILY 03/04/19 Asthma: Yes COPD: No - Immunization History Immunization Up to Date: Yes - Psycho Social/Smoking Cessation Hx Smoking History: Never smoked Have you smoked in the past 12 months: No Hx Alcohol Use: No Drug/Substance Use Hx: No Substance Use Type: None Discharge - Discharge Information Problems reviewed: Yes Clinical Impression/Diagnosis: Chest wall pain Condition: Stable Disposition: HOME - Admission No - Follow up/Referral - Patient Discharge Instructions Patient Printed Discharge Instructions: DI for Musculoskeletal Pain Additional Instructions: Rest, gentle ice massage may be helpful, ibuprofen for presumed inflammation. Return to ER if symptoms worsen. Otherwise follow-up primary physician - Post Discharge Activity
[2019-03-04 18:17] VITALS: BP 135/61; PULSE 78; TEMP 98; BMI 25.4
== END 2019-03-04 19:07 | disposition home or self-care (01) ==
LOC: FER 18:06
DX: R07.89 Other chest pain (principal); J45.909 Unspecified asthma, uncomplicated; J30.81 Allergic rhinitis due to animal (cat) (dog) hair and dander; Z88.8 Allergy status to other drugs, medicaments and biological substances
CPT/HCPCS: 71046-TC-FY; 99282-25

== ENCOUNTER 2019-10-24 12:45 | Emergency (ER) | payer BC ==
--- NOTE | 2019-10-24 12:55 | TELE ---
HPI Do you have fever,cough or shortness of breath?: Yes - General Reason For Visit: COVID TESTING Time Seen by Provider: 10/24/19 12:52 History Source: Patient Exam Limitations: Clinical Condition - History of Present Illness Timing/Duration: 24 hours Associated Symptoms: reports: denies symptoms 10/24/19 12:52 Patient with no significant past medical history present to [facility] urgent care with siblings for COVID testing. Patient reported her sister tested positive for COVID. Denies any symptoms. Denies fever, shortness of breath, cough, palpitation. Denies recent travel. Patient has not taken anything Past History - Medical History Allergies/Adverse Reactions: Allergies Allergy/AdvReac Type Severity Reaction Status Date / Time cat dander Allergy Verified 03/04/19 18:08 dog dander Allergy Verified 03/04/19 18:08 BLOOD THINNERS Allergy Intermediate Rash Uncoded 03/04/19 18:09 Home Medications: Ambulatory Orders Albuterol Sulfate [Albuterol Sulfate Hfa] 2 inh IH DAILY 03/04/19 Asthma: Yes COPD: No - Surgical History Appendectomy: Yes - Immunization History Immunization Up to Date: Yes - Psycho-Social/Smoking History Smoking History: Never smoked Have you smoked in the past 12 months: No Review of Systems - Review of Systems Able to Perform ROS?: Yes Limited Bruneian proficient: No Constitutional: No: Chills, Fever, Malaise HEENTM: No: Symptoms Reported, See HPI, Eye Pain, Blurred Vision, Tearing, Recent change in vision, Double Vision, Cataracts, Ear Pain, Ocular Prothesis, Ear Discharge, Nose Pain, Nose Congestion, Tinnitus, Nose Bleeding, Hearing Loss, Throat Pain, Throat Swelling, Mouth Pain, Dental Problems, Difficulty Swallowing, Mouth Swelling, Other Respiratory: No: Symptoms reported, See HPI, Cough, Orthopnea, Shortness of Breath, SOB with Exertion, SOB at Rest, Stridor, Wheezing, Productive cough, Hemoptysis, Other Cardiac (ROS): No: Symptoms Reported, See HPI, Chest Pain, Edema, Irregular Heart Rate, Lightheadedness, Palpitations, Syncope, Chest Tightness, Other ABD/GI: No: Symptoms Reported, Nausea, Vomiting Neurological: No: Symptoms reported, Headache, Dizziness All Other Systems: Reviewed and Negative *Physical Exam - Physical Exam General Appearance: Yes: Nourished, Appropriately Dressed. No: Apparent Distress HEENT: positive: Normal ENT Inspection Respiratory/Chest: negative: Respiratory Distress, Accessory Muscle Use Musculoskeletal: positive: Normal Inspection Extremity: positive: Normal Inspection, Normal Range of Motion Integumentary: positive: Normal Color Neurologic: positive: Fully Oriented, Alert, Normal Mood/Affect, Normal Response, Motor Strength 07/07 - Medical Decision Making 10/24/19 12:53 Patient with no significant past medical history present to [facility] urgent care with siblings for COVID testing. Patient reported her sister tested positive for COVID. Denies any symptoms. Denies fever, shortness of breath, cough, palpitation. Denies recent travel. Patient has not taken anything Clinical exam normal. Patient afebrile in no acute respiratory distress. Discussed with patient self quarantine instructions until negative COVID test or for at least a week . Cover test ordered as per patient request. Patient to go to [facility] drive[facility] for COVID testing. Patient stable for discharge Discharge Diagnosis at time of Disposition: Encounter by telehealth for suspected COVID-19 - Referrals Follow-up Referral(s): Trevor Mathews MD [Primary Care Provider] - - Patient Instructions Discharge Instructions: [facility] Instructions, [facility] COVID-19 Isolation Protocol - Discharge Disposition: HOME Condition at time of Disposition: Stable
== END 2019-10-24 12:55 | disposition home or self-care (01) ==
LOC: JVIRT 12:45
DX: Z11.59 Encounter for screening for other viral diseases (principal)
CPT/HCPCS: 36415; 86769; Q3014-GT; U0003

== ENCOUNTER 2019-10-25 16:35 | Emergency (ER) | payer BC ==
--- NOTE | 2019-10-25 17:00 | TELE ---
HPI Do you have fever,cough or shortness of breath?: No - General Reason For Visit: COVID-19 TESTING History Source: Patient Exam Limitations: No Limitations - History of Present Illness Timing/Duration: 4-6 hours Severity: reports: mild Associated Symptoms: reports: headaches 10/25/19 16:56 18 y/o male requesting retesting since he was told he was - today but 2 of his sisters were + (result given today). He states mild presure to the back of his head and denies any other symptoms at this time. No med hx, no smoking Past History - Travel History Traveled outside of the country in the last 30 days: No Close contact w/someone who was outside of country & ill: No - Medical History Allergies/Adverse Reactions: Allergies Allergy/AdvReac Type Severity Reaction Status Date / Time cat dander Allergy Verified 03/04/19 18:08 dog dander Allergy Verified 03/04/19 18:08 BLOOD THINNERS Allergy Intermediate Rash Uncoded 03/04/19 18:09 Home Medications: Ambulatory Orders Albuterol Sulfate [Albuterol Sulfate Hfa] 2 inh IH DAILY 03/04/19 Asthma: Yes COPD: No - Surgical History Appendectomy: Yes - Immunization History Immunization Up to Date: Yes - Psycho-Social/Smoking History Lives with/in: parents Smoking History: Never smoked Have you smoked in the past 12 months: No Review of Systems - Review of Systems Able to Perform ROS?: No Limited Croatian proficient: No Constitutional: No: Symptoms Reported HEENTM: No: Symptoms Reported Respiratory: No: Symptoms reported Cardiac (ROS): No: Symptoms Reported ABD/GI: No: Symptoms Reported : No: Symptoms Reported Musculoskeletal: No: Symptoms Reported Integumentary: No: Symptoms Reported Neurological: Yes: Headache *Physical Exam - Physical Exam General Appearance: Yes: Nourished, Appropriately Dressed. No: Apparent Distress HEENT: positive: EOMI, Pale Conjunctivae Neck: negative: Decreased range of motion Respiratory/Chest: negative: Respiratory Distress Gastrointestinal/Abdominal: negative: Distended Extremity: positive: Normal Inspection Integumentary: positive: Normal Color Neurologic: positive: Fully Oriented, Motor Strength 5/5 (ambulatory) - Medical Decision Making 10/25/19 16:59 CC: requesting testing for covid. 2 sister + and has was told he was - today. Pt has mild pressure to occipital region and denies other s/s Exsm: limited PE Plan: covid test ordered for sunday , pt understands to incubation period, isola te until tested and take tylenol for pain Discharge Diagnosis at time of Disposition: Encounter by telehealth for suspected COVID-19 - Referrals Follow-up Referral(s): Trevor Mathews MD [Primary Care Provider] - - Patient Instructions - Discharge Disposition: HOME Condition at time of Disposition: Good
== END 2019-10-25 17:00 | disposition home or self-care (01) ==
LOC: JVIRT 16:35
DX: Z20.828 Contact with and (suspected) exposure to other viral communicable diseases (principal)
CPT/HCPCS: Q3014-GT

== ENCOUNTER 2022-01-10 13:44 | Emergency (ER) | payer BC ==
[2022-01-10 14:04] VITALS: BP 107/61; PULSE 96; RESP 18; TEMP 98; BMI 25.8
== END 2022-01-10 15:05 | disposition home or self-care (01) ==
LOC: FER 13:44
DX: S93.402A Sprain of unspecified ligament of left ankle, initial encounter (principal); V00.131A Fall from skateboard, initial encounter
CPT/HCPCS: 73610-TC-LT-FY; 73630-TC-LT; 99283-25